=== PATIENT | male | born 1990 | race Caucasian/White ===

== ENCOUNTER 2017-12-06 20:14 | Emergency (ER) | payer OTHER ==
--- NOTE | 2017-12-06 20:37 | NUR ---
CALLED PT IN [place], NO RESPONSE
--- NOTE | 2017-12-06 21:08 | NUR ---
CALLED AGAIN X4; NOT IN LOBBY OR OUTSIDE ER. INFORMED BY SECURITY "PT WALKED OUT LONG TIME AGO"
== END 2017-12-06 21:09 | disposition left against medical advice (07) ==
LOC: ER 20:21
DX: Z53.21 Procedure and treatment not carried out due to patient leaving prior to being seen by health care provider (principal); Z04.6 Encounter for general psychiatric examination, requested by authority

== ENCOUNTER 2020-03-23 23:48 | Emergency (ER) | payer MEDICAID, OTHER ==
[~2020-03-23] VITALS: Ht 180.3 cm; Wt 79.4 kg
[2020-03-23 23:50] VITALS: BP 134/65
[2020-03-24 01:01] LABS: BASOPHILS # (AUTO) 0.1 /CMM (0.0-0.2); BASOPHILS % (AUTO) 0.9 % (0.0-2.0); EOSINOPHILS % (AUTO) 0.5 % (0.0-6.0); HEMATOCRIT 45 % (39-51); LYMPHOCYTES % (AUTO) 22.7 % (20.0-44.0); MEAN CORPUSCULAR HGB CONC 34 g/dl (31.0-36.0); MEAN CORPUSCULAR VOLUME 94 fL (80-96); MONOCYTES # (AUTO) 0.5 /CMM (0.1-1.30); MONOCYTES % (AUTO) 5.6 % (2.0-12.0); NEUTROPHILS # (AUTO) 6.2 /CMM (1.8-8.9); NEUTROPHILS % (AUTO) 70.3 % (43.0-81.0); PLATELET COUNT (AUTO) 289 /CMM (150-450); RED BLOOD CELL COUNT(AUTO) 4.73 MIL/uL (4.5-6.0); WHITE BLOOD COUNT (AUTO) 8.8 K/uL (4.3-11.0)
[2020-03-24 01:23] LABS: CALCIUM, SERUM 8.4 mg/dL (8.5-10.1); CARBON DIOXIDE 28 mmol/L (21-32); CHLORIDE 103 mmol/L (98-107); CREATININE 0.9 mg/dL (0.6-1.3); GLUCOSE 102 mg/dL (74-106); POTASSIUM 3.4 mmol/L (3.5-5.1); SODIUM SERUM 140 mmol/L (136-145); UREA NITROGEN, BLOOD 16 mg/dL (7-18)
[2020-03-24 01:27] LABS: ALANINE AMINOTRANSFERASE 26 U/L (12-78); ALBUMIN 3.9 g/dL (3.4-5.0); ALCOHOL, BLOOD < 3 mg/dL (0-0); ALKALINE PHOSPHATASE 73 U/L (46-116); ASPARTATE AMINOTRANSFERASE 15 U/L (15-37); BILIRUBIN,DIRECT 0.2 mg/dL (0.0-0.2); BILIRUBIN,TOTAL 0.6 mg/dL (0.2-1.0); TOTAL PROTEIN, SERUM 7.7 g/dL (6.4-8.2)
[2020-03-24 01:29] LABS: ACETAMINOPHEN < 10 ug/ml (10-30)
[2020-03-24 01:32] LABS: BILIRUBIN,URINE NEGATIVE (NEGATIVE); BLOOD, URINE SMALL Ery/uL (NEGATIVE); COLOR,URINE YELLOW (YELLOW); LEUKOCYTE ESTERASE ,URINE NEGATIVE (NEGATIVE); NITRITE, URINE NEGATIVE (NEGATIVE); PROTEIN,URINE NEGATIVE (NEGATIVE); UGLUCOSE NEGATIVE (NEGATIVE); UROBILINOGEN,URINE 0.2 EU/dL (0.2)
--- NOTE | 2020-03-24 01:42 | NUR ---
Pt states that he no longer wishes to stay in the er or be transfered to [facility]. Pt denies any si/hi. Pt eloped from ER. Dr Weathers notified.
== END 2020-03-24 02:00 | disposition left against medical advice (07) ==
LOC: ER 23:51
DX: F32.9 Major depressive disorder, single episode, unspecified (principal); R45.851 Suicidal ideations; F25.9 Schizoaffective disorder, unspecified
CPT/HCPCS: 36415; 80048-TC; 80076-TC; 85025-TC; G0480

== ENCOUNTER 2020-07-14 14:12 | Emergency (ER) | payer MEDICAID, OTHER ==
[~2020-07-14] VITALS: Ht 180.3 cm; Wt 83.9 kg
--- NOTE | 2020-07-14 14:23 | NUR ---
pt bib mother, states he is feeling homicidal stating "i want to kill my father." also having si w/ no specific plan. admits to been drinking today. pt is verbally responsive. stable vitals. nad noted. awaiting md ordoñez.
--- NOTE | 2020-07-14 14:34 | NUR ---
dr head at bedside for eval.
--- NOTE | 2020-07-14 14:40 | NUR ---
microbiology laboratory manager at bedside for blood draw.
[2020-07-14 14:48] LABS: BASOPHILS % (AUTO) 0.6 % (0.0-2.0); EOSINOPHILS % (AUTO) 0.8 % (0.0-6.0); HEMATOCRIT 43 % (39-51); HEMOGLOBIN 14.4 g/dL (13.5-17.5); LYMPHOCYTES # (AUTO) 1.5 /CMM (0.8-4.8); LYMPHOCYTES % (AUTO) 26.6 % (20.0-44.0); MEAN CORPUSCULAR HGB CONC 34 g/dl (31.0-36.0); MEAN CORPUSCULAR VOLUME 94 fL (80-96); MONOCYTES # (AUTO) 0.2 /CMM (0.1-1.30); MONOCYTES % (AUTO) 3.1 % (2.0-12.0); NEUTROPHILS # (AUTO) 3.9 /CMM (1.8-8.9); NEUTROPHILS % (AUTO) 68.9 % (43.0-81.0); PLATELET COUNT (AUTO) 321 /CMM (150-450); RED BLOOD CELL COUNT(AUTO) 4.57 MIL/uL (4.5-6.0); WHITE BLOOD COUNT (AUTO) 5.6 K/uL (4.3-11.0)
--- NOTE | 2020-07-14 14:50 | NUR ---
called security for wanding
--- NOTE | 2020-07-14 14:55 | NUR ---
security at bedside for wanding.
[2020-07-14 14:57] LABS: BILIRUBIN,URINE Negative (NEGATIVE); COLOR,URINE LIGHT YELLOW (YELLOW); LEUKOCYTE ESTERASE ,URINE Negative (NEGATIVE); NITRITE, URINE Negative (NEGATIVE); PROTEIN,URINE Negative (NEGATIVE); UGLUCOSE Negative (NEGATIVE); UROBILINOGEN,URINE 0.2 EU/dL (0.2)
[2020-07-14 15:02] LABS: ALANINE AMINOTRANSFERASE 18 U/L (12-78); ALBUMIN 3.6 g/dL (3.4-5.0); ALCOHOL, BLOOD 116 mg/dL (0-0); ALKALINE PHOSPHATASE 63 U/L (46-116); ASPARTATE AMINOTRANSFERASE 15 U/L (15-37); BILIRUBIN,DIRECT 0.1 mg/dL (0.0-0.2); BILIRUBIN,TOTAL 0.6 mg/dL (0.2-1.0); CALCIUM, SERUM 8.8 mg/dL (8.5-10.1); CARBON DIOXIDE 25 mmol/L (21-32); CHLORIDE 105 mmol/L (98-107); CREATININE 0.9 mg/dL (0.6-1.3); GLUCOSE 102 mg/dL (74-106); POTASSIUM 4.1 mmol/L (3.5-5.1); SODIUM SERUM 140 mmol/L (136-145); TOTAL PROTEIN, SERUM 7.2 g/dL (6.4-8.2); UREA NITROGEN, BLOOD 18 mg/dL (7-18)
[2020-07-14 15:03] LABS: BACTERIA,URINE Rare /HPF (None Seen); SQUAMOUS EPITHELIAL CELL,UR 0-2 /HPF (None Seen); WBC,URINE 0-2 /HPF (0-3)
[2020-07-14 15:05] LABS: ACETAMINOPHEN < 10 ug/ml (10-30)
--- NOTE | 2020-07-14 16:24 | NUR ---
covid 19 swab collected and sent to lab
--- NOTE | 2020-07-14 17:28 | NUR ---
COVID 19 rapid Antigen results: NEGATIVE
--- NOTE | 2020-07-14 22:10 | NUR ---
PT GOT ACCEPTED AT [facility]UELLAR # [phone]
--- NOTE | 2020-07-14 22:31 | NUR ---
[facility] ETA 0000
--- NOTE | 2020-07-15 00:10 | NUR ---
REPORT GIVEN TO LETITIA FAN FROM [facility]
--- NOTE | 2020-07-15 00:40 | NUR ---
[facility] DELAYED 45MIN ETA
--- NOTE | 2020-07-15 01:26 | NUR ---
REPORT GIVEN TO [facility] EMT
[2020-07-15 01:32] VITALS: BP 123/74
== END 2020-07-15 01:33 ==
LOC: ER 14:13
DX: F25.0 Schizoaffective disorder, bipolar type (principal); R45.851 Suicidal ideations; Z20.822 Contact with and (suspected) exposure to COVID-19; Z72.89 Other problems related to lifestyle
CPT/HCPCS: 36415; 80048; 80076; 80299; 80307; 80320 ×2; 81001; 85025; 87426; 99285; C9803; G0480

== ENCOUNTER 2020-10-17 15:45 | Emergency (ER) | payer OTHER ==
[~2020-10-17] VITALS: Ht 167.6 cm; Wt 81.6 kg
[2020-10-17] MEDS ORDERED: IV NS 0.9% 1,000 ML BAG IV ONE ×3 (16:00→21:30)
[2020-10-17] MEDS ORDERED: LORAZEPAM INJ 2 MG/ML VIAL IV ONE ×3 (16:00→21:30)
--- NOTE | 2020-10-17 16:00 | NUR ---
"i want to go to [place] [facility]- need medical clearance" Patient a/ox4, breathing even and unlabored, no sob noted, needs attended.
[2020-10-17] MEDS ORDERED: LORAZEPAM INJ 2 MG/ML VIAL ONE ×3 (16:27→21:03)
[2020-10-17 16:41] LABS: BASOPHILS # (AUTO) 0.1 K/uL (0.0-0.2); BASOPHILS % (AUTO) 1.1 % (0.0-2.0); EOSINOPHILS % (AUTO) 0.1 % (0.0-6.0); HEMATOCRIT 46 % (39-51); HEMOGLOBIN 15.5 g/dL (13.5-17.5); LYMPHOCYTES # (AUTO) 1.1 K/uL (0.8-4.8); LYMPHOCYTES % (AUTO) 8.1 % (20.0-44.0); MEAN CORPUSCULAR HGB CONC 34 g/dl (31.0-36.0); MEAN CORPUSCULAR VOLUME 93 fL (80-96); MONOCYTES # (AUTO) 0.5 K/uL (0.1-1.30); MONOCYTES % (AUTO) 3.4 % (2.0-12.0); NEUTROPHILS # (AUTO) 12.1 K/uL (1.8-8.9); NEUTROPHILS % (AUTO) 87.3 % (43.0-81.0); PLATELET COUNT (AUTO) 357 K/uL (150-450); RED BLOOD CELL COUNT(AUTO) 4.96 MIL/uL (4.5-6.0); WHITE BLOOD COUNT (AUTO) 13.8 K/uL (4.3-11.0)
[2020-10-17 16:49] LABS: CARBON DIOXIDE 25 mmol/L (21-32); CHLORIDE 101 mmol/L (98-107); CREATININE 1.1 mg/dL (0.6-1.3); GLUCOSE 128 mg/dL (74-106); POTASSIUM 3.4 mmol/L (3.5-5.1); SODIUM SERUM 139 mmol/L (136-145); UREA NITROGEN, BLOOD 19 mg/dL (7-18)
[2020-10-17 16:56] LABS: ACETAMINOPHEN < 2 ug/ml (10-30); ALANINE AMINOTRANSFERASE 26 U/L (12-78); ALBUMIN 4.3 g/dL (3.4-5.0); ALCOHOL, BLOOD 64 mg/dL (0-0); ALKALINE PHOSPHATASE 65 U/L (46-116); ASPARTATE AMINOTRANSFERASE 16 U/L (15-37); BILIRUBIN,DIRECT 0.1 mg/dL (0.0-0.2); BILIRUBIN,TOTAL 0.4 mg/dL (0.2-1.0); TOTAL PROTEIN, SERUM 8.6 g/dL (6.4-8.2)
--- NOTE | 2020-10-17 17:01 | NUR ---
COVID PENDING, MACHINE IS BROKEN PER CLS MAGDA
[2020-10-17 17:42] LABS: BILIRUBIN,URINE Negative (NEGATIVE); COLOR,URINE YELLOW (YELLOW); LEUKOCYTE ESTERASE ,URINE Negative (NEGATIVE); NITRITE, URINE Negative (NEGATIVE); PROTEIN,URINE Trace mg/dl (NEGATIVE); UGLUCOSE Negative (NEGATIVE); UROBILINOGEN,URINE 0.2 EU/dL (0.2)
[2020-10-17 17:55] LABS: BACTERIA,URINE Rare /HPF (None Seen); SQUAMOUS EPITHELIAL CELL,UR Few /HPF (None Seen); WBC,URINE NONE SEEN /HPF (0-3)
--- NOTE | 2020-10-17 19:01 | NUR ---
PATIENT RESTING, NO DISTRESS. PT STS HE'S SLEEPY AND STILL SLIGHTLY ANXIOUS.
--- NOTE | 2020-10-17 19:26 | NUR ---
facesheet and clinicals faxed to [facility].
--- NOTE | 2020-10-17 20:36 | NUR ---
PT ACCEPTED AT [facility] 2 GIVE REPORT TO: [phone] BROWN
--- NOTE | 2020-10-17 21:01 | NUR ---
PER VEBAL ORDER BY CONCEPCION CRESPO WILL ADMIN 1L NS BOLUS AND ATIVAN 1MG IV X1 NOW
--- NOTE | 2020-10-17 21:58 | NUR ---
REPORT GIVEN TO LETITIA DASILVA FROM [facility]
--- NOTE | 2020-10-17 22:18 | NUR ---
CALLED CALL THE CAR FOR TRANSPORTATION. WILL CALL BACK WITH ETA. RESERVATION #[id number]
--- NOTE | 2020-10-17 23:27 | NUR ---
[facility] ETA [phone]
--- NOTE | 2020-10-18 00:18 | NUR ---
Janusz aguila in ED - 10/18/20 at 0048 by SACHA Patient discharged to home in stable condition. Written and verbal after care instructions given. Patient verbalizes understanding of instruction.
--- NOTE | 2020-10-18 00:25 | NUR ---
Patient states, "i really want to go outside and smoke. I'm going to call my mom to pick me up."
--- NOTE | 2020-10-18 00:28 | NUR ---
IV removed. Catheter intact and site benign. Pressure and 4x4 applied to site. No bleeding noted.
--- NOTE | 2020-10-18 00:34 | NUR ---
Patient denies Suicidal ideation and denies homicidal intent.
--- NOTE | 2020-10-18 00:43 | NUR ---
Patient discharged to home in stable condition. Written and verbal after care instructions given. Patient verbalizes understanding of instruction.
[2020-10-18 00:47] VITALS: BP 127/76
== END 2020-10-18 00:47 | disposition home or self-care (01) ==
LOC: ER 15:50
DX: R45.851 Suicidal ideations (principal); R45.850 Homicidal ideations; F19.10 Other psychoactive substance abuse, uncomplicated; R00.0 Tachycardia, unspecified; F15.10 Other stimulant abuse, uncomplicated; Z91.14 Patient's other noncompliance with medication regimen; F25.0 Schizoaffective disorder, bipolar type; Z20.822 Contact with and (suspected) exposure to COVID-19
CPT/HCPCS: 36415; 80048; 80076; 80143; 80307; 80320; 81001; 85025; 87426; 93005; 96361; 96374; 96376; 99285; C9803; J2060 ×3; J7030 ×3; G0480

== ENCOUNTER → 2020-10-17 | Emergency (ER) | payer OTHER ==
--- NOTE | 2020-10-17 12:11 | NUR ---
Called NO response
--- NOTE | 2020-10-17 12:20 | NUR ---
Called NO response NO one in [place]
--- NOTE | 2020-10-17 12:35 | NUR ---
Caklled No response. Eltarasd
== END | disposition home or self-care (01) ==
LOC: ER 13:02
DX: Z53.21 Procedure and treatment not carried out due to patient leaving prior to being seen by health care provider (principal)

== ENCOUNTER 2020-12-02 23:06 | Emergency (ER) | payer OTHER ==
[~2020-12-02] VITALS: Ht 180.3 cm; Wt 77.1 kg
--- NOTE | 2020-12-03 02:28 | NUR ---
PT CAME TO ER FOR COMPLAIN OF SUICIAL IDEATION. PT WAS PLANNING TO OVERDOSE ON HIS MEDICATION AND IS REQUESTING PLACEMENT TO A VOLUNTARY PSYCH UNIT. PT IS AMBULATORY WITH STABLE GAIT TO BATHROOM. URINE SAMPLE COLLECTED. PT REMAINED ON CLOSE SUPERVISION FOR SI PRECAUTION. VITAL SIGNS STABLE. WILL CONTINUE TO MONITOR.
[2020-12-03 02:48] LABS: MONOCYTES # (AUTO) 0.4 K/uL (0.1-1.30); NEUTROPHILS # (AUTO) 4.4 K/uL (1.8-8.9); WHITE BLOOD COUNT (AUTO) 8.1 K/uL (4.3-11.0)
[2020-12-03 02:53] LABS: BILIRUBIN,URINE NEGATIVE (NEGATIVE); COLOR,URINE YELLOW (YELLOW); LEUKOCYTE ESTERASE ,URINE NEGATIVE (NEGATIVE); NITRITE, URINE NEGATIVE (NEGATIVE); PH,URINE 6.5 (5.0-8.0); PROTEIN,URINE NEGATIVE (NEGATIVE); UGLUCOSE NEGATIVE (NEGATIVE); UROBILINOGEN,URINE 0.2 EU/dL (0.2)
[2020-12-03 03:01] LABS: ALANINE AMINOTRANSFERASE 32 U/L (12-78); ALCOHOL, BLOOD 38 mg/dL (0-0); ALKALINE PHOSPHATASE 72 U/L (46-116); ASPARTATE AMINOTRANSFERASE 24 U/L (15-37); BILIRUBIN,DIRECT 0.1 mg/dL (0.0-0.2); BILIRUBIN,TOTAL 0.3 mg/dL (0.2-1.0); CALCIUM, SERUM 8.9 mg/dL (8.5-10.1); CARBON DIOXIDE 28 mmol/L (21-32); CHLORIDE 100 mmol/L (98-107); CREATININE 0.7 mg/dL (0.6-1.3); GLUCOSE 105 mg/dL (74-106); POTASSIUM 3.6 mmol/L (3.5-5.1); SODIUM SERUM 139 mmol/L (136-145); TOTAL PROTEIN, SERUM 8.3 g/dL (6.4-8.2); UREA NITROGEN, BLOOD 9 mg/dL (7-18)
[2020-12-03 03:02] LABS: ACETAMINOPHEN < 2 ug/ml (10-30)
[2020-12-03 03:20] LABS: BACTERIA,URINE None seen /HPF (None Seen); SQUAMOUS EPITHELIAL CELL,UR Few /HPF (None Seen)
[2020-12-03 05:18] LABS: HEMATOCRIT 39 % (39-51); HEMOGLOBIN 13.6 g/dL (13.5-17.5); LYMPHOCYTES % (AUTO) 37.6 % (20.0-44.0); MEAN CORPUSCULAR HGB CONC 35 g/dl (31.0-36.0); MEAN CORPUSCULAR VOLUME 93 fL (80-96); MONOCYTES % (AUTO) 5.4 % (2.0-12.0); PLATELET COUNT (AUTO) 446 K/uL (150-450); RED BLOOD CELL COUNT(AUTO) 4.26 MIL/uL (4.5-6.0)
[2020-12-03 05:19] LABS: BASOPHILS # (AUTO) 0.1 K/uL (0.0-0.2)
--- NOTE | 2020-12-03 06:06 | NUR ---
CLINICAL AND FACESHEET FAXED TO [facility]TA[facility] FOR VOLUNTARY PSYCH ADMISSION.
--- NOTE | 2020-12-03 10:00 | NUR ---
PATIENT A/OX4, BREATHING EVEN AND UNLABORED, NO SOB NOTED. NEEDS ATTENDED.
--- NOTE | 2020-12-03 10:33 | NUR ---
THE PATIENT SLEEPING. RESPONSIVE TO VERBAL STIMULI. IN ROOM AIR AND DENIES SOB. RESPIRATION REGULAR AND UNLABORED. WILL CONTINUE TO MONITOR THE PATIENT.
--- NOTE | 2020-12-03 11:43 | NUR ---
Accepted at [facility] will go to unit [address] Moyer For report: [phone] ext [phone]
--- NOTE | 2020-12-03 11:45 | NUR ---
[facility]ORT [facility] CALLED ETA [phone]
--- NOTE | 2020-12-03 12:08 | NUR ---
Given report to Devin gipson Mode [place] Carol.
--- NOTE | 2020-12-03 12:33 | NUR ---
THE PATIENT IS TRANSFERED TO [facility] IN STABLE CONDITION VIA ARRANGED TRANSPO.
[2020-12-03 12:34] VITALS: BP 149/79
== END 2020-12-03 12:34 ==
LOC: ER 23:06
DX: F31.9 Bipolar disorder, unspecified (principal); R45.851 Suicidal ideations; Z20.822 Contact with and (suspected) exposure to COVID-19; F20.9 Schizophrenia, unspecified; Z82.49 Family history of ischemic heart disease and other diseases of the circulatory system; R31.29 Other microscopic hematuria; F19.10 Other psychoactive substance abuse, uncomplicated
CPT/HCPCS: 36415; 80048; 80076; 80143; 80307; 80320; 81001; 85025; 87426; 99285; C9803; G0480

== ENCOUNTER 2020-12-20 19:17 | Emergency (ER) | payer OTHER ==
[~2020-12-20] VITALS: Ht 180.3 cm; Wt 79.4 kg
--- NOTE | 2020-12-20 21:36 | NUR ---
BIBS TO ER BED 19. AAOX4. NOT IN RESP DISTRESS. AMBULATORY, CAME IN FOR SUICIDAL IDEATION W/ PLAN TO SHOOT HIMSELF. PT IS SEEKING VOLUNTARY ADMISSION TO [facility]. PT IS GOWN, BELONGINGS PLACED IN LOCKER AND SITTER WITH SIGHT. WAS AT HE BEDSIDE FOR EVAL. ORDERS RECEIVED, NOTED AND CARRIED OUT.
[2020-12-20 21:38] LABS: BILIRUBIN,URINE SMALL (NEGATIVE); COLOR,URINE YELLOW (YELLOW); LEUKOCYTE ESTERASE ,URINE Negative (NEGATIVE); NITRITE, URINE Negative (NEGATIVE); PH,URINE 6.5 (5.0-8.0); PROTEIN,URINE 100 mg/dl (NEGATIVE); UGLUCOSE Negative (NEGATIVE)
[2020-12-20 21:51] LABS: RBC,URINE 21-50 /HPF (0-2); WBC,URINE 0-2 /HPF (0-3)
[2020-12-20 21:52] LABS: BACTERIA,URINE Few /HPF (None Seen)
[2020-12-20 21:54] LABS: FINE GRANULAR CASTS,URINE Few /LPF (None Seen)
[2020-12-20 21:57] LABS: BASOPHILS # (AUTO) 0.1 K/uL (0.0-0.2); BASOPHILS % (AUTO) 0.4 % (0.0-2.0); EOSINOPHILS % (AUTO) 0.2 % (0.0-6.0); HEMATOCRIT 36 % (39-51); HEMOGLOBIN 12.4 g/dL (13.5-17.5); MEAN CORPUSCULAR HGB CONC 34 g/dl (31.0-36.0); MEAN CORPUSCULAR VOLUME 92 fL (80-96); MONOCYTES # (AUTO) 1.3 K/uL (0.1-1.30); MONOCYTES % (AUTO) 8.2 % (2.0-12.0); NEUTROPHILS % (AUTO) 78.2 % (43.0-81.0); PLATELET COUNT (AUTO) 334 K/uL (150-450); RED BLOOD CELL COUNT(AUTO) 3.97 MIL/uL (4.5-6.0); WHITE BLOOD COUNT (AUTO) 15.3 K/uL (4.3-11.0)
[2020-12-20 22:05] LABS: CALCIUM, SERUM 8.2 mg/dL (8.5-10.1); CARBON DIOXIDE 25 mmol/L (21-32); CHLORIDE 98 mmol/L (98-107); GLUCOSE 102 mg/dL (74-106); POTASSIUM 3.5 mmol/L (3.5-5.1); SODIUM SERUM 136 mmol/L (136-145); UREA NITROGEN, BLOOD 24 mg/dL (7-18)
[2020-12-20 22:11] LABS: ACETAMINOPHEN < 10 ug/ml (10-30); ALANINE AMINOTRANSFERASE 25 U/L (12-78); ALBUMIN 3.3 g/dL (3.4-5.0); ALCOHOL, BLOOD < 3 mg/dL (0-0); ALKALINE PHOSPHATASE 72 U/L (46-116); ASPARTATE AMINOTRANSFERASE 39 U/L (15-37); BILIRUBIN,DIRECT 0.4 mg/dL (0.0-0.2); BILIRUBIN,TOTAL 1.9 mg/dL (0.2-1.0); TOTAL PROTEIN, SERUM 7.6 g/dL (6.4-8.2)
--- NOTE | 2020-12-21 01:18 | NUR ---
VERBAL AUTH RECEIVED.
--- NOTE | 2020-12-21 01:18 | NUR ---
DR VELASCO ON PHONE WITH DR. CASTILLO
--- NOTE | 2020-12-21 01:51 | NUR ---
CLINICALS FAXED TO [facility]
--- NOTE | 2020-12-21 02:05 | NUR ---
PT SITTING QUIETLY IN BED WATCHING TV, CONNECTED TO MONITOR.
--- NOTE | 2020-12-21 04:15 | NUR ---
Patient is resting comfortably in bed with eyes closed. Easily aroused. VSS
--- NOTE | 2020-12-21 06:28 | NUR ---
PT WALKING WITH STEADY GAIT TO BATHROOM, NEEDS MET
--- NOTE | 2020-12-21 10:26 | NUR ---
ACCEPTED AT [facility]. ACCEPTING MD: DR ROGERS / DR SALINAS # FOR REPORT [phone] EXT [phone]
--- NOTE | 2020-12-21 10:29 | NUR ---
CALLED TRANSPORT [facility] TO [place] ETA [phone]
[2020-12-21 12:34] VITALS: BP 117/73
--- NOTE | 2020-12-21 12:44 | NUR ---
CALLED [facility] MULTIPLE TIMES FOR REPORT NO ANSWER AND THEY KEEP TRANSFERRING MY CALL TO AUTOMATED ANSWERING MACHINE.
--- NOTE | 2020-12-21 13:08 | NUR ---
REPORT GIVEN TO LETITIA ZAVALETA OF [facility].
--- NOTE | 2020-12-21 13:44 | NUR ---
REPORT GIVEN TO EMS FOR PT TRANSFER TO [facility].
== END 2020-12-21 13:45 ==
LOC: ER 19:17
DX: R45.851 Suicidal ideations (principal); F15.10 Other stimulant abuse, uncomplicated; Z20.822 Contact with and (suspected) exposure to COVID-19; F31.9 Bipolar disorder, unspecified; F20.9 Schizophrenia, unspecified; Z59.0 Homelessness
CPT/HCPCS: 36415; 71045; 80048; 80076; 80143; 80307; 80320; 81001; 85025; 87426; 99285; C9803; G0480

== ENCOUNTER 2021-03-18 19:03 | Emergency (ER) | payer OTHER ==
[~2021-03-18] VITALS: Ht 180.3 cm; Wt 83.9 kg
[2021-03-18 21:00] VITALS: BP 135/68
--- NOTE | 2021-03-18 21:00 | NUR ---
PRESENTED TO THE ER FOR C/O SI PLAN TO SHOOT HIMSELF. PT REQUESTING MEDICAL CLEARANCE FOR VOLUNTARY PSYCH ADMISSION. PT WAS PLACED ON CLOSE SUPERVISION OF A SITTER. SI PRECAUTION IMPLEMENTED , WILL CONT TO MONITOR
[2021-03-18 21:13] LABS: BASOPHILS % (AUTO) 0.2 % (0.0-2.0); EOSINOPHILS % (AUTO) 0.1 % (0.0-6.0); HEMATOCRIT 47 % (39-51); HEMOGLOBIN 15.9 g/dL (13.5-17.5); LYMPHOCYTES # (AUTO) 2.1 K/uL (0.8-4.8); LYMPHOCYTES % (AUTO) 16.8 % (20.0-44.0); MEAN CORPUSCULAR HGB CONC 34 g/dl (31.0-36.0); MEAN CORPUSCULAR VOLUME 90 fL (80-96); MONOCYTES # (AUTO) 0.7 K/uL (0.1-1.30); MONOCYTES % (AUTO) 5.4 % (2.0-12.0); NEUTROPHILS # (AUTO) 9.9 K/uL (1.8-8.9); NEUTROPHILS % (AUTO) 77.5 % (43.0-81.0); PLATELET COUNT (AUTO) 357 K/uL (150-450); RED BLOOD CELL COUNT(AUTO) 5.26 MIL/uL (4.5-6.0); WHITE BLOOD COUNT (AUTO) 12.7 K/uL (4.3-11.0)
[2021-03-18 21:58] LABS: BILIRUBIN,URINE Negative (NEGATIVE); COLOR,URINE YELLOW (YELLOW); LEUKOCYTE ESTERASE ,URINE Negative (NEGATIVE); NITRITE, URINE Negative (NEGATIVE); PROTEIN,URINE Negative (NEGATIVE); UGLUCOSE Negative (NEGATIVE); UROBILINOGEN,URINE 0.2 EU/dL (0.2)
[2021-03-18 22:00] LABS: BACTERIA,URINE Rare /HPF (None Seen); SQUAMOUS EPITHELIAL CELL,UR Few /HPF (None Seen); WBC,URINE NONE SEEN /HPF (0-3)
[2021-03-18 22:06] LABS: CALCIUM, SERUM 8.4 mg/dL (8.5-10.1); CARBON DIOXIDE 23 mmol/L (21-32); CHLORIDE 97 mmol/L (98-107); GLUCOSE 100 mg/dL (74-106); POTASSIUM 3.7 mmol/L (3.5-5.1); SODIUM SERUM 134 mmol/L (136-145); UREA NITROGEN, BLOOD 7 mg/dL (7-18)
[2021-03-18 22:11] LABS: ACETAMINOPHEN < 2 ug/ml (10-30); ALANINE AMINOTRANSFERASE 28 U/L (12-78); ALBUMIN 4.5 g/dL (3.4-5.0); ALCOHOL, BLOOD 101 mg/dL (0-0); ALKALINE PHOSPHATASE 76 U/L (46-116); ASPARTATE AMINOTRANSFERASE 45 U/L (15-37); BILIRUBIN,DIRECT 0.2 mg/dL (0.0-0.2); BILIRUBIN,TOTAL 1.7 mg/dL (0.2-1.0); TOTAL PROTEIN, SERUM 8.7 g/dL (6.4-8.2)
--- NOTE | 2021-03-18 23:21 | NUR ---
FACESHEET AND CLINICALS FAXED TO [facility].
--- NOTE | 2021-03-19 01:53 | NUR ---
PT GOT ACCEPTED AT [facility] BY DR CORMIER. REPORT GIVEN TO ENZO. [facility] ETA: 5 MIN
--- NOTE | 2021-03-19 01:55 | NUR ---
REPORT GIVEN TO ENZO [facility]
--- NOTE | 2021-03-19 02:25 | NUR ---
PT WAS TRANSFERRED TO [facility] IN STABLE CONDITION. ALL BELONGINGS WERE PICKED UP.
== END 2021-03-19 02:25 ==
LOC: ER 19:13
DX: F25.0 Schizoaffective disorder, bipolar type (principal); R45.851 Suicidal ideations; R45.850 Homicidal ideations; Z59.01 Sheltered homelessness; Z91.14 Patient's other noncompliance with medication regimen; Z20.822 Contact with and (suspected) exposure to COVID-19
CPT/HCPCS: 36415; 80048; 80076; 80143; 80307; 80320; 81001; 85025; 87426; 99285; C9803; G0480

== ENCOUNTER 2021-03-29 01:07 | Emergency (ER) | payer OTHER ==
[~2021-03-29] VITALS: Ht 180.3 cm; Wt 83.9 kg
--- NOTE | 2021-03-29 01:45 | NUR ---
REEMA ANDREA [employer] FROM [place] C/O + SI/HI WITH PLAN TO USE GUN ON HIMSELF. PATIENT IS A/O X 4, RR EVEN AND UNLABORED, NO SOB NOTED. PATIENT PLACED ON RESTAURANT HOST AND POX. PATIENT IN HOSPTIAL GOWN. PATIENT BELONGINGS PLACED IN LOCKER. SITTER AT BEDSIDE.
[2021-03-29 01:50] LABS: BASOPHILS % (AUTO) 0.3 % (0.0-2.0); EOSINOPHILS % (AUTO) 0.1 % (0.0-6.0); HEMATOCRIT 42 % (39-51); HEMOGLOBIN 14.2 g/dL (13.5-17.5); LYMPHOCYTES % (AUTO) 15.3 % (20.0-44.0); MEAN CORPUSCULAR HGB CONC 34 g/dl (31.0-36.0); MEAN CORPUSCULAR VOLUME 92 fL (80-96); MONOCYTES # (AUTO) 1.4 K/uL (0.1-1.30); MONOCYTES % (AUTO) 10.5 % (2.0-12.0); NEUTROPHILS # (AUTO) 9.7 K/uL (1.8-8.9); NEUTROPHILS % (AUTO) 73.8 % (43.0-81.0); PLATELET COUNT (AUTO) 338 K/uL (150-450); RED BLOOD CELL COUNT(AUTO) 4.56 MIL/uL (4.5-6.0); WHITE BLOOD COUNT (AUTO) 13.2 K/uL (4.3-11.0)
[2021-03-29 01:56] LABS: CALCIUM, SERUM 8.9 mg/dL (8.5-10.1); CREATININE 1.1 mg/dL (0.6-1.3); POTASSIUM 3.9 mmol/L (3.5-5.1)
[2021-03-29 02:03] LABS: ALANINE AMINOTRANSFERASE 32 U/L (12-78); ALBUMIN 4.3 g/dL (3.4-5.0); ALCOHOL, BLOOD < 3 mg/dL (0-0); ALKALINE PHOSPHATASE 73 U/L (46-116); ASPARTATE AMINOTRANSFERASE 34 U/L (15-37); BILIRUBIN,DIRECT 0.4 mg/dL (0.0-0.2); BILIRUBIN,TOTAL 2.1 mg/dL (0.2-1.0); TOTAL PROTEIN, SERUM 8.2 g/dL (6.4-8.2)
[2021-03-29 02:11] LABS: ACETAMINOPHEN 0 ug/ml (10-30)
[2021-03-29 03:05] LABS: BILIRUBIN,URINE NEGATIVE (NEGATIVE); COLOR,URINE YELLOW (YELLOW); LEUKOCYTE ESTERASE ,URINE NEGATIVE (NEGATIVE); NITRITE, URINE NEGATIVE (NEGATIVE); PH,URINE 6.5 (5.0-8.0); PROTEIN,URINE NEGATIVE (NEGATIVE); UGLUCOSE NEGATIVE (NEGATIVE); UROBILINOGEN,URINE 0.2 EU/dL (0.2)
--- NOTE | 2021-03-29 06:14 | NUR ---
pt provided with food
--- NOTE | 2021-03-29 06:15 | NUR ---
CLINICALS FAXED TO [facility]
--- NOTE | 2021-03-29 06:41 | NUR ---
PT ACCEPTED AT [facility] UNDER THE CARE OF DR. CUELLAR. CALL [phone] FOR REPORT.
--- NOTE | 2021-03-29 06:44 | NUR ---
REPOT GIVEN TO LETITIA DASILVA [facility] AT THE [facility]
--- NOTE | 2021-03-29 06:47 | NUR ---
CALLED [facility] REGARDING TRANSPORTATION TO [facility]. PER [facility], THEY WANT HIM TO BE TRANSFERRED PAST 1100. ETA 1100
--- NOTE | 2021-03-29 07:05 | NUR ---
LETITIA NICOLE AT BEDSIDE FOR PSYCH EVAL.
[2021-03-29 10:00] VITALS: BP 124/79
--- NOTE | 2021-03-29 10:35 | NUR ---
PICKED UP BY [facility] IN STABLE CONDITION
== END 2021-03-29 10:45 ==
LOC: ER 01:12
DX: R45.851 Suicidal ideations (principal); D72.829 Elevated white blood cell count, unspecified; E80.6 Other disorders of bilirubin metabolism; Z20.822 Contact with and (suspected) exposure to COVID-19; Z59.01 Sheltered homelessness; F31.9 Bipolar disorder, unspecified
CPT/HCPCS: 36415; 80048; 80076; 80143; 80307; 80320; 81003; 85025; 87426; 99285; C9803; G0480

== ENCOUNTER 2021-06-10 13:05 | Emergency (ER) | payer OTHER ==
[~2021-06-10] VITALS: Ht 180.3 cm; Wt 74.8 kg
--- NOTE | 2021-06-10 14:00 | NUR ---
THE PATIENT BIBS FOR C/O FEELING SUICIDAL,PLAN IS TO SHOOT HIMSELF,REQUESTING VOLUNTARY ADMISSION TO [facility]. DENIES HI. DENIES HAVING ANY HALLUCINATIONS. IN ROOM AIR AND DENIES SOB. RESPIRATION REGULAR AND UNLABORED. WILL CONTINUE TO MONITOR THE PATIENT.
[2021-06-10 14:27] LABS: BASOPHILS # (AUTO) 0.1 K/uL (0.0-0.2); BASOPHILS % (AUTO) 0.7 % (0.0-2.0); EOSINOPHILS % (AUTO) 0.8 % (0.0-6.0); HEMATOCRIT 44 % (39-51); HEMOGLOBIN 14.8 g/dL (13.5-17.5); LYMPHOCYTES % (AUTO) 28.7 % (20.0-44.0); MEAN CORPUSCULAR HGB CONC 34 g/dl (31.0-36.0); MEAN CORPUSCULAR VOLUME 91 fL (80-96); MONOCYTES # (AUTO) 0.3 K/uL (0.1-1.30); MONOCYTES % (AUTO) 3.8 % (2.0-12.0); NEUTROPHILS # (AUTO) 4.6 K/uL (1.8-8.9); PLATELET COUNT (AUTO) 271 K/uL (150-450); RED BLOOD CELL COUNT(AUTO) 4.83 MIL/uL (4.5-6.0); WHITE BLOOD COUNT (AUTO) 6.9 K/uL (4.3-11.0)
[2021-06-10 14:33] LABS: BILIRUBIN,URINE NEGATIVE (NEGATIVE); COLOR,URINE STRAW (YELLOW); LEUKOCYTE ESTERASE ,URINE NEGATIVE (NEGATIVE); NITRITE, URINE NEGATIVE (NEGATIVE); PROTEIN,URINE NEGATIVE (NEGATIVE); UGLUCOSE NEGATIVE (NEGATIVE); UROBILINOGEN,URINE 0.2 EU/dL (0.2)
[2021-06-10 14:44] LABS: CALCIUM, SERUM 8.6 mg/dL (8.5-10.1); CARBON DIOXIDE 28 mmol/L (21-32); CHLORIDE 98 mmol/L (98-107); CREATININE 1.3 mg/dL (0.6-1.3); GLUCOSE 95 mg/dL (74-106); POTASSIUM 3.6 mmol/L (3.5-5.1); SODIUM SERUM 134 mmol/L (136-145); UREA NITROGEN, BLOOD 10 mg/dL (7-18)
[2021-06-10 14:56] LABS: ALANINE AMINOTRANSFERASE 31 U/L (12-78); ALCOHOL, BLOOD 112 mg/dL (0-0); ALKALINE PHOSPHATASE 66 U/L (46-116); ASPARTATE AMINOTRANSFERASE 18 U/L (15-37); BILIRUBIN,DIRECT 0.3 mg/dL (0.0-0.2); BILIRUBIN,TOTAL 1.4 mg/dL (0.2-1.0); TOTAL PROTEIN, SERUM 7.7 g/dL (6.4-8.2)
[2021-06-10 14:58] LABS: ACETAMINOPHEN < 2 ug/ml (10-30)
--- NOTE | 2021-06-10 15:31 | NUR ---
SS Consult: SS consult for suicidal. Pt. Is a 31-year-old White male. Pt. demonstrates adequate insight to the reason for hospitalization. Per pt., he was brought to hospital by self-due due to having suicidal thoughts. Pt. was oriented x3, alert, and cooperative. During interview, pt. was capable of following directions, made appropriate eye-contact, and appeared well-groomed. Pt.'s speech was at a normal rate and pt.'s mood was elevated. HANNAH explored pt.'s hx of mental health and substance abuse. Pt. reported no hx of mental health, or homicidal ideation. Pt. reported having suicidal thoughts. Per pt., it started today, and he has a plan to shoot himself if he does not get the help he needs. Pt. reported that he drinks a 3 pack every night but does not want help regarding his drink. Pt. denies auditory hallucinations, visual hallucinations, paranoia, or delusions. SW explored pt.'s living situation. Per pt., he resides with his mom in [place]. Pt. stated that he sees a therapist and a psychiatrist [pt. couldn't provide name or number] every month but has not recently. Per pt., he reports having adequate support from his mom [Taylor [phone]]. Pt. expressed that [facility]. HANNAH provided available resources and pt. rejected. Please fax clinicals to [facility] once pt. is medically cleared.
--- NOTE | 2021-06-10 17:33 | NUR ---
FAXED CLINICALS TO [facility]
--- NOTE | 2021-06-10 18:31 | NUR ---
ACCEPTED AT [facility] UNDER DR MEZA NUMBER FOR REPORT [phone] SO TO ARRANGE TRANSPORT
--- NOTE | 2021-06-10 18:35 | NUR ---
[facility] CALLED FOR TRANSPORT ETA IS 2030
--- NOTE | 2021-06-10 18:42 | NUR ---
REPORT GIVEN TO NURSING NILAY SINCLAIR FROM [facility].
--- NOTE | 2021-06-10 20:33 | NUR ---
[facility] AT BEDSIDE FOR TRANSPORTATION.
[2021-06-10 20:34] VITALS: BP 138/70
== END 2021-06-10 20:46 ==
LOC: ER 13:06
DX: R45.851 Suicidal ideations (principal); F31.9 Bipolar disorder, unspecified; F17.200 Nicotine dependence, unspecified, uncomplicated; Z20.822 Contact with and (suspected) exposure to COVID-19; Z59.00 Homelessness unspecified; R03.0 Elevated blood-pressure reading, without diagnosis of hypertension
CPT/HCPCS: 36415; 80048; 80076; 80143; 80307; 80320 ×2; 81003; 85025; 87426; 99285; C9803; G0480

== ENCOUNTER 2021-07-05 22:44 | Emergency (ER) | payer OTHER ==
[~2021-07-05] VITALS: Ht 180.3 cm; Wt 79.4 kg
--- NOTE | 2021-07-06 01:51 | NUR ---
CALLED TO [facility] NOT IN WAITING ROOM
--- NOTE | 2021-07-06 02:10 | NUR ---
BIBS. TO ER BED 18. AAOX4. NOT IN RESP DISTRESS. AMBUALTORY. CAME IN FOR SUICIDAL IDEATION, PLAN TO SHOOT HIMSELF. DOES NOT OWN AND GUN AND UNABLE TO OBATAINED ONE. DENIES HI. PT GOWN, BELONGINGS IN LOCKER AND SITTER WITHIN SIGHT. WAS AT THE BEDSIDE FOR EVAL. ORDERS RECEIVED, NOTED AND CARRIED OUT. URINE COLLECTED, COVID SWAB DONE AND SENT TO LAB.
[2021-07-06 02:29] LABS: BASOPHILS % (AUTO) 0.3 % (0.0-2.0); EOSINOPHILS % (AUTO) 0.3 % (0.0-6.0); HEMATOCRIT 41 % (39-51); HEMOGLOBIN 13.9 g/dL (13.5-17.5); LYMPHOCYTES # (AUTO) 2.5 K/uL (0.8-4.8); LYMPHOCYTES % (AUTO) 20.2 % (20.0-44.0); MEAN CORPUSCULAR HGB CONC 34 g/dl (31.0-36.0); MEAN CORPUSCULAR VOLUME 91 fL (80-96); MONOCYTES # (AUTO) 1.1 K/uL (0.1-1.30); NEUTROPHILS # (AUTO) 8.8 K/uL (1.8-8.9); NEUTROPHILS % (AUTO) 70.2 % (43.0-81.0); PLATELET COUNT (AUTO) 351 K/uL (150-450); RED BLOOD CELL COUNT(AUTO) 4.52 MIL/uL (4.5-6.0); WHITE BLOOD COUNT (AUTO) 12.5 K/uL (4.3-11.0)
--- NOTE | 2021-07-06 02:57 | NUR ---
FOOD AND DRINK PROVIDED TO PT, RESTING COMFORTABLY IN BED
[2021-07-06 03:06] LABS: ALANINE AMINOTRANSFERASE 57 U/L (12-78); ALBUMIN 4.4 g/dL (3.4-5.0); ALCOHOL, BLOOD < 3 mg/dL (0-0); ALKALINE PHOSPHATASE 81 U/L (46-116); ASPARTATE AMINOTRANSFERASE 112 U/L (15-37); BILIRUBIN,TOTAL 2.4 mg/dL (0.2-1.0); CARBON DIOXIDE 25 mmol/L (21-32); CHLORIDE 94 mmol/L (98-107); CREATININE 1.1 mg/dL (0.6-1.3); GLUCOSE 94 mg/dL (74-106); POTASSIUM 4.1 mmol/L (3.5-5.1); SODIUM SERUM 130 mmol/L (136-145); TOTAL PROTEIN, SERUM 8.6 g/dL (6.4-8.2); UREA NITROGEN, BLOOD 15 mg/dL (7-18)
[2021-07-06 03:34] LABS: BILIRUBIN,URINE SMALL (NEGATIVE); COLOR,URINE YELLOW (YELLOW); LEUKOCYTE ESTERASE ,URINE NEGATIVE (NEGATIVE); NITRITE, URINE NEGATIVE (NEGATIVE); PH,URINE 6.5 (5.0-8.0); PROTEIN,URINE TRACE mg/dl (NEGATIVE); UGLUCOSE NEGATIVE (NEGATIVE); UROBILINOGEN,URINE 0.2 EU/dL (0.2)
[2021-07-06 04:14] LABS: BACTERIA,URINE None seen /HPF (None Seen); SQUAMOUS EPITHELIAL CELL,UR Few /HPF (None Seen); WBC,URINE 0-2 /HPF (0-3)
[2021-07-06 04:25] LABS: ACETAMINOPHEN < 2 ug/ml (10-30)
--- NOTE | 2021-07-06 05:07 | NUR ---
faxed face sheet and clinincals to [facility]
--- NOTE | 2021-07-06 05:13 | NUR ---
LUPE AT [facility] HAS REC'D THE FAX. CONFIRMED
[2021-07-06 05:22] LABS: BILIRUBIN,DIRECT 0.4 mg/dL (0.0-0.2)
--- NOTE | 2021-07-06 09:02 | NUR ---
CALLED [facility] FOR UPDATE REGARDING PT ACCEPTANCE AND WAS NOTIFIED THAT CLINICAL PACKET WAS RECEIEVED. NOW AWAITING FEEDBACK FROM RADIOGRAPHY TECHNICIAN.
--- NOTE | 2021-07-06 12:14 | NUR ---
PT GOT [facility]PETED TO [facility] NUMBER FOR REPORT [phone] POLO CRAIG [id number]
--- NOTE | 2021-07-06 12:30 | NUR ---
LUNCH TRAY PROVIDED. TOLERATED WELL
[2021-07-06 16:02] VITALS: BP 146/74
--- NOTE | 2021-07-06 16:10 | NUR ---
REPORT GIVEN TO BRIONNA DONG OF UNIT 2 [facility]
--- NOTE | 2021-07-06 16:15 | NUR ---
PATIENT PICKED UP BY [facility] IN STABLE CONDITION. WOULD BE TRANSFERRED TO [facility]. ALL BELONGINGS GIVEN BACK TO THE PATIENT BEFORE LEAVING FACILITY. ALL DOCUMENT PROVIDED TO BE GIVEN TO [facility].
== END 2021-07-06 16:27 ==
LOC: ER 22:52
DX: R45.851 Suicidal ideations (principal); D72.829 Elevated white blood cell count, unspecified; F31.9 Bipolar disorder, unspecified; F20.9 Schizophrenia, unspecified; E87.1 Hypo-osmolality and hyponatremia; Z20.822 Contact with and (suspected) exposure to COVID-19
CPT/HCPCS: 36415; 80048; 80076; 80143; 80307; 80320; 81001; 85025; 87426; 99285; C9803; G0480

== ENCOUNTER 2021-07-31 14:26 | Emergency (ER) | payer OTHER ==
[~2021-07-31] VITALS: Ht 180.3 cm; Wt 79.4 kg
[2021-07-31 15:20] LABS: BASOPHILS # (AUTO) 0.1 K/uL (0.0-0.2); BASOPHILS % (AUTO) 0.7 % (0.0-2.0); EOSINOPHILS % (AUTO) 0.1 % (0.0-6.0); HEMATOCRIT 43 % (39-51); HEMOGLOBIN 14.8 g/dL (13.5-17.5); LYMPHOCYTES # (AUTO) 1.9 K/uL (0.8-4.8); LYMPHOCYTES % (AUTO) 27.3 % (20.0-44.0); MEAN CORPUSCULAR HGB CONC 34 g/dl (31.0-36.0); MEAN CORPUSCULAR VOLUME 93 fL (80-96); MONOCYTES # (AUTO) 0.4 K/uL (0.1-1.30); MONOCYTES % (AUTO) 6.2 % (2.0-12.0); NEUTROPHILS # (AUTO) 4.7 K/uL (1.8-8.9); NEUTROPHILS % (AUTO) 65.7 % (43.0-81.0); PLATELET COUNT (AUTO) 354 K/uL (150-450); RED BLOOD CELL COUNT(AUTO) 4.63 MIL/uL (4.5-6.0); WHITE BLOOD COUNT (AUTO) 7.1 K/uL (4.3-11.0)
[2021-07-31 15:40] LABS: BILIRUBIN,URINE NEGATIVE (NEGATIVE); COLOR,URINE YELLOW (YELLOW); LEUKOCYTE ESTERASE ,URINE NEGATIVE (NEGATIVE); NITRITE, URINE NEGATIVE (NEGATIVE); PH,URINE 6.5 (5.0-8.0); PROTEIN,URINE NEGATIVE (NEGATIVE); UGLUCOSE NEGATIVE (NEGATIVE); UROBILINOGEN,URINE 0.2 EU/dL (0.2)
--- NOTE | 2021-07-31 15:40 | NUR ---
SS Note: Pt. Is a 31-year-old male who demonstrates adequate insight to the reason for hospitalization. Per pt., he came in for suicidal ideation, with a plan of cutting himself. Pt. was oriented x3, alert, and cooperative. During interview, pt. was capable of following directions and appeared unkempt. Pt.'s speech was at a normal rate and pt.'s mood was elevated. Pt. reported no hx of mental health, substance abuse, denies homicidal ideation. Pt. denies auditory hallucinations, visual hallucinations, paranoia, or delusions. SW explored pt.'s living situation. Per pt., he has been homeless for a few months. Pt. has been to shelters but does not like it. SW offered senior living resources and pt. rejected. Pt. stated that he has been to [facility] before and wants to go back. Plan: Please faxed clinicals to [facility] once pt. is medically cleared.
[2021-07-31 15:49] LABS: ALBUMIN 4.1 g/dL (3.4-5.0); BILIRUBIN,DIRECT 0.2 mg/dL (0.0-0.2); BILIRUBIN,TOTAL 0.9 mg/dL (0.2-1.0); CALCIUM, SERUM 9.4 mg/dL (8.5-10.1); POTASSIUM 3.6 mmol/L (3.5-5.1); TOTAL PROTEIN, SERUM 8.2 g/dL (6.4-8.2)
[2021-07-31 16:22] LABS: BACTERIA,URINE Rare /HPF (None Seen); SQUAMOUS EPITHELIAL CELL,UR Rare /HPF (None Seen); WBC,URINE 0-2 /HPF (0-3)
[2021-07-31 17:20] VITALS: BP 140/82
--- NOTE | 2021-07-31 22:52 | NUR ---
PATIENT ACCEPTED UNDER DR ALLEN AT [facility] REPORT [phone]
--- NOTE | 2021-07-31 23:48 | NUR ---
[facility] ETA 2 HOURS
--- NOTE | 2021-07-31 23:50 | NUR ---
REPORT GIVEN NURSE ANITA SOLIS SOUTHMAYD
--- NOTE | 2021-08-01 00:56 | NUR ---
[facility] 340 AT BEDSIDE FOR PT TRANSPORT TO [facility]. REPORT GIVEN. PT IS IN STABLE CONDITION FOR TRANSPORT. PT IS AMBULATORY ON STEADY GAIT
--- NOTE | 2021-08-01 01:02 | NUR ---
pt left on gurney with 2 emt at bedside on stable condition.
== END 2021-08-01 01:02 ==
LOC: ER 14:28
DX: R45.851 Suicidal ideations (principal); F31.9 Bipolar disorder, unspecified; F17.200 Nicotine dependence, unspecified, uncomplicated; Z59.00 Homelessness unspecified
CPT/HCPCS: 36415; 80048; 80076; 80143; 80307; 80320; 81001; 85025; 87426; 99285; C9803; J7030; G0480

== ENCOUNTER 2021-09-08 15:32 | Emergency (ER) | payer OTHER ==
[~2021-09-08] VITALS: Ht 180.3 cm; Wt 79.4 kg
[2021-09-08] MEDS ORDERED: IBUPROFEN 600 MG TABLET ONE (16:20)
[2021-09-08] MEDS ORDERED: IBUPROFEN 600 MG TABLET PO ONE (16:30)
--- NOTE | 2021-09-08 17:08 | NUR ---
urine collected and sent to the lab
--- NOTE | 2021-09-08 17:08 | NUR ---
covid antigen swab done and sent to the lab
[2021-09-08 17:38] LABS: BILIRUBIN,URINE NEGATIVE (NEGATIVE); COLOR,URINE YELLOW (YELLOW); LEUKOCYTE ESTERASE ,URINE NEGATIVE (NEGATIVE); NITRITE, URINE NEGATIVE (NEGATIVE); PH,URINE 6.5 (5.0-8.0); PROTEIN,URINE NEGATIVE (NEGATIVE); UGLUCOSE NEGATIVE (NEGATIVE); UROBILINOGEN,URINE 0.2 EU/dL (0.2)
[2021-09-08 17:39] LABS: BASOPHILS % (AUTO) 0.4 % (0.0-2.0); EOSINOPHILS % (AUTO) 0.1 % (0.0-6.0); HEMATOCRIT 45 % (39-51); HEMOGLOBIN 15.3 g/dL (13.5-17.5); LYMPHOCYTES # (AUTO) 2.1 K/uL (0.8-4.8); LYMPHOCYTES % (AUTO) 23.4 % (20.0-44.0); MEAN CORPUSCULAR HGB CONC 34 g/dl (31.0-36.0); MEAN CORPUSCULAR VOLUME 91 fL (80-96); MONOCYTES # (AUTO) 0.3 K/uL (0.1-1.30); NEUTROPHILS # (AUTO) 6.7 K/uL (1.8-8.9); NEUTROPHILS % (AUTO) 73.1 % (43.0-81.0); PLATELET COUNT (AUTO) 291 K/uL (150-450); WHITE BLOOD COUNT (AUTO) 9.2 K/uL (4.3-11.0)
[2021-09-08 17:57] LABS: RBC,URINE 0-2 /HPF (0-2); WBC,URINE 0-2 /HPF (0-3)
[2021-09-08 17:58] LABS: BACTERIA,URINE None seen /HPF (None Seen); SQUAMOUS EPITHELIAL CELL,UR None Seen /HPF (None Seen)
[2021-09-08 18:13] LABS: CALCIUM, SERUM 9.1 mg/dL (8.5-10.1); CARBON DIOXIDE 31 mmol/L (21-32); CHLORIDE 102 mmol/L (98-107); GLUCOSE 89 mg/dL (74-106); SODIUM SERUM 138 mmol/L (136-145); UREA NITROGEN, BLOOD 10 mg/dL (7-18)
[2021-09-08 18:18] LABS: ALANINE AMINOTRANSFERASE 20 U/L (12-78); ALBUMIN 3.8 g/dL (3.4-5.0); ALCOHOL, BLOOD 65 mg/dL (0-0); ALKALINE PHOSPHATASE 64 U/L (46-116); ASPARTATE AMINOTRANSFERASE 19 U/L (15-37); BILIRUBIN,DIRECT 0.1 mg/dL (0.0-0.2); BILIRUBIN,TOTAL 0.6 mg/dL (0.2-1.0); TOTAL PROTEIN, SERUM 8.1 g/dL (6.4-8.2)
[2021-09-08 18:19] LABS: ACETAMINOPHEN < 0 ug/ml (10-30)
--- NOTE | 2021-09-08 20:46 | NUR ---
faxed face sheet and clinicals to [facility]
[2021-09-08 23:07] VITALS: BP 141/84
--- NOTE | 2021-09-08 23:10 | NUR ---
PT IS ACCEPTED AT [facility] UNDER THE CARE OF DR. CUELLAR. CALL [phone] FOR REPORT.
--- NOTE | 2021-09-08 23:11 | NUR ---
ETA 20-30 MIN ETA VIA [facility]
--- NOTE | 2021-09-08 23:14 | NUR ---
REPORT GIVEN TO LETITIA DASILVA SUP [facility] AT THE [facility]
--- NOTE | 2021-09-08 23:31 | NUR ---
[facility] 280 AT BEDSIDE FOR PT TRANSPORT. REPORT GIVEN TO EMT. PT IS IN STABLE CONDITION. AMBULATORY ON STEADY GAIT
--- NOTE | 2021-09-08 23:43 | NUR ---
PT LEFT ON GURNEY WITH 3 EMT AT BEDSIDE ON STABEL CONDITION.
== END 2021-09-09 ==
LOC: ER 15:35
DX: R45.851 Suicidal ideations (principal); Z20.822 Contact with and (suspected) exposure to COVID-19; F31.9 Bipolar disorder, unspecified; F25.9 Schizoaffective disorder, unspecified
CPT/HCPCS: 36415; 80048; 80076; 80143; 80307; 80320; 81001; 85025; 87426; 99285; C9803; G0480

== ENCOUNTER 2021-10-14 22:05 | Emergency (ER) | payer OTHER ==
[~2021-10-14] VITALS: Ht 180.3 cm; Wt 79.4 kg
[2021-10-14 23:28] LABS: BASOPHILS % (AUTO) 0.5 % (0.0-2.0); EOSINOPHILS % (AUTO) 2.1 % (0.0-6.0); HEMATOCRIT 38 % (39-51); LYMPHOCYTES # (AUTO) 2.2 K/uL (0.8-4.8); LYMPHOCYTES % (AUTO) 38.7 % (20.0-44.0); MEAN CORPUSCULAR HGB CONC 34 g/dl (31.0-36.0); MEAN CORPUSCULAR VOLUME 91 fL (80-96); MONOCYTES # (AUTO) 0.4 K/uL (0.1-1.30); MONOCYTES % (AUTO) 6.9 % (2.0-12.0); NEUTROPHILS % (AUTO) 51.8 % (43.0-81.0); PLATELET COUNT (AUTO) 354 K/uL (150-450); RED BLOOD CELL COUNT(AUTO) 4.21 MIL/uL (4.5-6.0); WHITE BLOOD COUNT (AUTO) 5.7 K/uL (4.3-11.0)
[2021-10-14 23:55] LABS: CALCIUM, SERUM 8.9 mg/dL (8.5-10.1); CREATININE 0.9 mg/dL (0.6-1.3); POTASSIUM 3.6 mmol/L (3.5-5.1)
[2021-10-15 00:01] LABS: ALBUMIN 3.4 g/dL (3.4-5.0); BILIRUBIN,DIRECT 0.1 mg/dL (0.0-0.2); BILIRUBIN,TOTAL 0.2 mg/dL (0.2-1.0); TOTAL PROTEIN, SERUM 7.7 g/dL (6.4-8.2)
[2021-10-15 01:30] LABS: BILIRUBIN,URINE NEGATIVE (NEGATIVE); COLOR,URINE YELLOW (YELLOW); LEUKOCYTE ESTERASE ,URINE NEGATIVE (NEGATIVE); NITRITE, URINE NEGATIVE (NEGATIVE); PROTEIN,URINE NEGATIVE (NEGATIVE); UGLUCOSE NEGATIVE (NEGATIVE); UROBILINOGEN,URINE 0.2 EU/dL (0.2)
[2021-10-15 01:45] LABS: BACTERIA,URINE Rare /HPF (None Seen); RBC,URINE 0-2 /HPF (0-2); SQUAMOUS EPITHELIAL CELL,UR Rare /HPF (None Seen); WBC,URINE 0-2 /HPF (0-3)
--- NOTE | 2021-10-15 02:18 | NUR ---
FACESHEET AND CLINICALS FAXED TO [facility].
--- NOTE | 2021-10-15 04:38 | NUR ---
PT ACCEPTED TO [facility] BY DR ALLEN. # FOR REPORT [phone]
--- NOTE | 2021-10-15 04:50 | NUR ---
CALLED [facility] FOR BLS TO [facility] 30-45 MIN
--- NOTE | 2021-10-15 05:20 | NUR ---
REPORT GIVEN TO FOZIA DONG [facility]
--- NOTE | 2021-10-15 05:25 | NUR ---
GAVE REPORT TO [facility] FOR TRANSPORT
[2021-10-15 05:58] VITALS: BP 126/66
== END 2021-10-15 05:59 ==
LOC: ER 22:13
DX: R45.851 Suicidal ideations (principal); Z20.822 Contact with and (suspected) exposure to COVID-19; F31.9 Bipolar disorder, unspecified; F17.200 Nicotine dependence, unspecified, uncomplicated
CPT/HCPCS: 36415; 80048; 80076; 80143; 80307; 80320; 81001; 85025; 87426; 99285; C9803; G0480

== ENCOUNTER 2021-11-01 09:27 | Emergency (ER) | payer OTHER ==
[~2021-11-01] VITALS: Ht 175.3 cm; Wt 74.8 kg
--- NOTE | 2021-11-01 09:33 | NUR ---
DR MARTINEZ AT BEDSIDE
--- NOTE | 2021-11-01 09:35 | NUR ---
CAME IN FOR "Feeling Suicidal - I want to shoot myself (Denies access to gun). Off meds. TO ER BED 18, HOOKED TO MONITOR, CHANGED TO HOSP GOWN, WARM BLANKET PROVIDED. PATIENT AAO x 4. NOT IN DISTRESS. AWAITING MD NICHOLS
[2021-11-01 09:59] LABS: BILIRUBIN,URINE NEGATIVE (NEGATIVE); COLOR,URINE YELLOW (YELLOW); LEUKOCYTE ESTERASE ,URINE SMALL (NEGATIVE); NITRITE, URINE NEGATIVE (NEGATIVE); PROTEIN,URINE NEGATIVE (NEGATIVE); UGLUCOSE NEGATIVE (NEGATIVE); UROBILINOGEN,URINE 0.2 EU/dL (0.2)
[2021-11-01 09:59] LABS: BASOPHILS # (AUTO) 0.1 K/uL (0.0-0.2); BASOPHILS % (AUTO) 0.6 % (0.0-2.0); EOSINOPHILS % (AUTO) 0.4 % (0.0-6.0); HEMATOCRIT 42 % (39-51); HEMOGLOBIN 14.1 g/dL (13.5-17.5); LYMPHOCYTES # (AUTO) 2.2 K/uL (0.8-4.8); LYMPHOCYTES % (AUTO) 25.8 % (20.0-44.0); MEAN CORPUSCULAR HGB CONC 34 g/dl (31.0-36.0); MEAN CORPUSCULAR VOLUME 91 fL (80-96); MONOCYTES # (AUTO) 0.4 K/uL (0.1-1.30); MONOCYTES % (AUTO) 4.7 % (2.0-12.0); NEUTROPHILS # (AUTO) 5.7 K/uL (1.8-8.9); NEUTROPHILS % (AUTO) 68.5 % (43.0-81.0); PLATELET COUNT (AUTO) 327 K/uL (150-450); RED BLOOD CELL COUNT(AUTO) 4.57 MIL/uL (4.5-6.0); WHITE BLOOD COUNT (AUTO) 8.4 K/uL (4.3-11.0)
[2021-11-01 10:13] LABS: ALANINE AMINOTRANSFERASE 25 U/L (12-78); ALBUMIN 4.1 g/dL (3.4-5.0); ALCOHOL, BLOOD < 3 mg/dL (0-0); ALKALINE PHOSPHATASE 76 U/L (46-116); ASPARTATE AMINOTRANSFERASE 13 U/L (15-37); BILIRUBIN,DIRECT 0.3 mg/dL (0.0-0.2); BILIRUBIN,TOTAL 1.3 mg/dL (0.2-1.0); CALCIUM, SERUM 9.2 mg/dL (8.5-10.1); CARBON DIOXIDE 30 mmol/L (21-32); CHLORIDE 99 mmol/L (98-107); CREATININE 0.8 mg/dL (0.6-1.3); GLUCOSE 90 mg/dL (74-106); POTASSIUM 3.8 mmol/L (3.5-5.1); SODIUM SERUM 137 mmol/L (136-145); TOTAL PROTEIN, SERUM 8.9 g/dL (6.4-8.2); UREA NITROGEN, BLOOD 6 mg/dL (7-18)
[2021-11-01 10:15] LABS: ACETAMINOPHEN < 0 ug/ml (10-30)
[2021-11-01 10:55] LABS: BACTERIA,URINE Few /HPF (None Seen); SQUAMOUS EPITHELIAL CELL,UR Few /HPF (None Seen); WBC,URINE 21-50 /HPF (0-3)
--- NOTE | 2021-11-01 11:21 | NUR ---
COVID SWAB DONE AND SENT TO LAB
--- NOTE | 2021-11-01 11:47 | NUR ---
CLINICALS FAXED TO [facility].
--- NOTE | 2021-11-01 14:14 | NUR ---
FAXED COVID RESULTS
--- NOTE | 2021-11-01 14:27 | NUR ---
REPORT GIVEN TO NICK DONG OF [facility]
[2021-11-01 14:51] VITALS: BP 128/74
[2021-11-01] MEDS ORDERED: NITROFURANTOIN/MONOHYDRATE MACROCRYSTALS 100 MG CAPSULE ONE (14:59)
[2021-11-01] MEDS ORDERED: NITROFURANTOIN/MONOHYDRATE MACROCRYSTALS 100 MG CAPSULE PO ONE (15:00)
--- NOTE | 2021-11-01 15:03 | NUR ---
PATIENT PICKED UP BY [facility] IN STABLE CONDITION. ALL BELONGINGS GIVEN TO PATIENT.
== END 2021-11-01 15:06 ==
LOC: ER 09:32
DX: R45.851 Suicidal ideations (principal); F15.10 Other stimulant abuse, uncomplicated; Z20.822 Contact with and (suspected) exposure to COVID-19; F31.9 Bipolar disorder, unspecified; Z91.14 Patient's other noncompliance with medication regimen
CPT/HCPCS: 99285; 85025; 80048; 87086; 80076; 81001; 36415; 87426; 80143; 80320; 80307; C9803; G0480

== ENCOUNTER 2022-03-30 18:14 | Emergency (ER) | payer OTHER ==
[~2022-03-30] VITALS: Ht 180.3 cm; Wt 74.8 kg
--- NOTE | 2022-03-30 19:25 | NUR ---
URINE SAMPLE COLLECTED
--- NOTE | 2022-03-30 19:30 | NUR ---
COVID SWAB COLLECTED AND SENT TO LAB
[2022-03-30 19:54] VITALS: BP 144/81
[2022-03-30 19:56] LABS: BILIRUBIN,URINE NEGATIVE (NEGATIVE); COLOR,URINE YELLOW (YELLOW); LEUKOCYTE ESTERASE ,URINE NEGATIVE (NEGATIVE); NITRITE, URINE NEGATIVE (NEGATIVE); PROTEIN,URINE NEGATIVE (NEGATIVE); UGLUCOSE NEGATIVE (NEGATIVE); UROBILINOGEN,URINE 0.2 EU/dL (0.2)
[2022-03-30 19:56] LABS: BASOPHILS % (AUTO) 0.5 % (0.0-2.0); HEMATOCRIT 43 % (39-51); HEMOGLOBIN 14.4 g/dL (13.5-17.5); LYMPHOCYTES # (AUTO) 1.5 K/uL (0.8-4.8); LYMPHOCYTES % (AUTO) 15.7 % (20.0-44.0); MEAN CORPUSCULAR HGB CONC 34 g/dl (31.0-36.0); MEAN CORPUSCULAR VOLUME 92 fL (80-96); MONOCYTES # (AUTO) 0.2 K/uL (0.1-1.30); MONOCYTES % (AUTO) 1.9 % (2.0-12.0); NEUTROPHILS # (AUTO) 7.8 K/uL (1.8-8.9); NEUTROPHILS % (AUTO) 81.9 % (43.0-81.0); PLATELET COUNT (AUTO) 313 K/uL (150-450); RED BLOOD CELL COUNT(AUTO) 4.65 MIL/uL (4.5-6.0); WHITE BLOOD COUNT (AUTO) 9.6 K/uL (4.3-11.0)
[2022-03-30 20:18] LABS: CALCIUM, SERUM 8.4 mg/dL (8.5-10.1); CREATININE 0.9 mg/dL (0.6-1.3); POTASSIUM 3.8 mmol/L (3.5-5.1)
[2022-03-30 20:26] LABS: ALBUMIN 3.9 g/dL (3.4-5.0); BILIRUBIN,DIRECT 0.2 mg/dL (0.0-0.2); BILIRUBIN,TOTAL 0.9 mg/dL (0.2-1.0); TOTAL PROTEIN, SERUM 7.5 g/dL (6.4-8.2)
--- NOTE | 2022-03-30 21:12 | NUR ---
FACESHEET AND CLINICALS FAXED TO [facility].
--- NOTE | 2022-03-30 21:48 | NUR ---
PT ACCEPTED UNDER DR FUNK CALLBACK NUMBER IS [phone]
--- NOTE | 2022-03-30 21:52 | NUR ---
CALLED [facility] FOR TRANSPORT[facility] ETA IS 75-90 MIN
--- NOTE | 2022-03-30 22:48 | NUR ---
REPORT GIVEN TO [facility]
--- NOTE | 2022-03-31 00:24 | NUR ---
GIVEN TO EMS AT BEDSIDE
== END 2022-03-31 01:15 ==
LOC: ER 18:18
DX: R45.851 Suicidal ideations (principal); F15.10 Other stimulant abuse, uncomplicated; Z20.822 Contact with and (suspected) exposure to COVID-19; F31.9 Bipolar disorder, unspecified; R03.0 Elevated blood-pressure reading, without diagnosis of hypertension
CPT/HCPCS: 99285; 85025; 80048; 80076; 81003; 36415; 87426; 80143; 80320; 80307; C9803; G0480

== ENCOUNTER 2022-04-16 23:52 | Emergency (ER) | payer OTHER ==
[~2022-04-16] VITALS: Ht 180.3 cm; Wt 74.8 kg
--- NOTE | 2022-04-17 02:11 | NUR ---
BIBS. TO ER BED 18. AAOX4. NOT IN ANY DISTRESS. AMBUALTORY. CAME IN FOR SUICIDAL IDEATION WITH PLAN TO SHOOT HIMSELF. PT IS SEEKING MEDICAL CLEARANCE FOR VOLUNTARY ADMISSION. DENIES HOMICIDAL IDEATION. PT WAS GOWNED UP, BELONGINGS IN LOCKER AND WANDED. SITTER IS WITHIN SIGHT. URINE AND COVID SWAB COLLECTED. WAS AT THE BEDSIDE FOR EVAL
[2022-04-17 02:51] LABS: BASOPHILS % (AUTO) 0.6 % (0.0-2.0); EOSINOPHILS % (AUTO) 3.5 % (0.0-6.0); HEMATOCRIT 41 % (39-51); HEMOGLOBIN 13.8 g/dL (13.5-17.5); LYMPHOCYTES # (AUTO) 1.5 K/uL (0.8-4.8); LYMPHOCYTES % (AUTO) 28.1 % (20.0-44.0); MEAN CORPUSCULAR HGB CONC 34 g/dl (31.0-36.0); MEAN CORPUSCULAR VOLUME 92 fL (80-96); MONOCYTES # (AUTO) 0.5 K/uL (0.1-1.30); MONOCYTES % (AUTO) 8.6 % (2.0-12.0); NEUTROPHILS # (AUTO) 3.2 K/uL (1.8-8.9); NEUTROPHILS % (AUTO) 59.2 % (43.0-81.0); PLATELET COUNT (AUTO) 296 K/uL (150-450); RED BLOOD CELL COUNT(AUTO) 4.44 MIL/uL (4.5-6.0); WHITE BLOOD COUNT (AUTO) 5.4 K/uL (4.3-11.0)
[2022-04-17 03:19] LABS: ALBUMIN 3.7 g/dL (3.4-5.0); BILIRUBIN,DIRECT 0.2 mg/dL (0.0-0.2); BILIRUBIN,TOTAL 0.8 mg/dL (0.2-1.0); CALCIUM, SERUM 8.6 mg/dL (8.5-10.1); CREATININE 0.9 mg/dL (0.6-1.3); POTASSIUM 3.9 mmol/L (3.5-5.1); TOTAL PROTEIN, SERUM 7.3 g/dL (6.4-8.2)
[2022-04-17 03:43] LABS: BILIRUBIN,URINE NEGATIVE (NEGATIVE); COLOR,URINE YELLOW (YELLOW); LEUKOCYTE ESTERASE ,URINE NEGATIVE (NEGATIVE); NITRITE, URINE NEGATIVE (NEGATIVE); PROTEIN,URINE NEGATIVE (NEGATIVE); UGLUCOSE NEGATIVE (NEGATIVE); UROBILINOGEN,URINE 0.2 EU/dL (0.2)
[2022-04-17 03:45] LABS: WBC,URINE 0-2 /HPF (0-3)
[2022-04-17 03:46] LABS: BACTERIA,URINE Rare /HPF (None Seen); SQUAMOUS EPITHELIAL CELL,UR Few /HPF (None Seen)
--- NOTE | 2022-04-17 04:18 | NUR ---
FACESHEET AND CLINICALS FAXED TO [facility].
--- NOTE | 2022-04-17 05:06 | NUR ---
Janusz aguila in ED - 04/17/22 at 0633 by BRI PT IS ACCEPTED AT [facility] UNDER THE CARE OF Karen CUELLAR. CALL [phone] UNIT TO FOR REPORT
--- NOTE | 2022-04-17 05:06 | NUR ---
PT IS ACCEPTED AT [facility] UNDER THE CARE OF DR. CUELLAR. CALL [phone] UNIT 2 FOR REPORT
--- NOTE | 2022-04-17 06:56 | NUR ---
CALLED FOR REPORT. TO CALL BACK AFTER CHANGE OF SHIFT
--- NOTE | 2022-04-17 07:05 | NUR ---
[facility] CALLED FOR BLS GOING TO [facility] ETA - 60 MIN
[2022-04-17 07:50] VITALS: BP 116/65
--- NOTE | 2022-04-17 08:05 | NUR ---
report given to 2 staff for [facility]
--- NOTE | 2022-04-17 08:06 | NUR ---
report given to DOLORES EMT transport for tonny,all belongings given
== END 2022-04-17 08:07 ==
LOC: ER 23:54
DX: R45.851 Suicidal ideations (principal); F15.10 Other stimulant abuse, uncomplicated; F19.10 Other psychoactive substance abuse, uncomplicated; Z20.822 Contact with and (suspected) exposure to COVID-19; F17.200 Nicotine dependence, unspecified, uncomplicated; F31.9 Bipolar disorder, unspecified
CPT/HCPCS: 99285; 85025; 80048; 80076; 81001; 36415; 87426; 80143; 80320; 80307; C9803; G0480

== ENCOUNTER 2022-07-07 15:25 | Emergency (ER) | payer OTHER ==
[~2022-07-07] VITALS: Ht 180.3 cm; Wt 74.8 kg
[2022-07-07 16:41] LABS: BASOPHILS # (AUTO) 0.1 K/uL (0.0-0.2); BASOPHILS % (AUTO) 0.9 % (0.0-2.0); EOSINOPHILS % (AUTO) 4.6 % (0.0-6.0); HEMATOCRIT 43 % (39-51); HEMOGLOBIN 13.9 g/dL (13.5-17.5); LYMPHOCYTES # (AUTO) 2.1 K/uL (0.8-4.8); LYMPHOCYTES % (AUTO) 27.9 % (20.0-44.0); MEAN CORPUSCULAR HGB CONC 32 g/dl (31.0-36.0); MEAN CORPUSCULAR VOLUME 93 fL (80-96); MONOCYTES # (AUTO) 0.4 K/uL (0.1-1.30); MONOCYTES % (AUTO) 6.1 % (2.0-12.0); NEUTROPHILS # (AUTO) 4.4 K/uL (1.8-8.9); NEUTROPHILS % (AUTO) 60.5 % (43.0-81.0); PLATELET COUNT (AUTO) 341 K/uL (150-450); RED BLOOD CELL COUNT(AUTO) 4.61 MIL/uL (4.5-6.0); WHITE BLOOD COUNT (AUTO) 7.3 K/uL (4.3-11.0)
[2022-07-07 16:43] LABS: BILIRUBIN,URINE NEGATIVE (NEGATIVE); COLOR,URINE YELLOW (YELLOW); LEUKOCYTE ESTERASE ,URINE NEGATIVE (NEGATIVE); NITRITE, URINE NEGATIVE (NEGATIVE); PROTEIN,URINE NEGATIVE (NEGATIVE); UGLUCOSE NEGATIVE (NEGATIVE); UROBILINOGEN,URINE 0.2 EU/dL (0.2)
[2022-07-07 17:01] LABS: BACTERIA,URINE None seen /HPF (None Seen)
[2022-07-07 17:02] LABS: SQUAMOUS EPITHELIAL CELL,UR Few /HPF (None Seen)
[2022-07-07 17:03] LABS: WBC,URINE 0-2 /HPF (0-3)
[2022-07-07 17:35] LABS: BILIRUBIN,DIRECT 0.1 mg/dL (0.0-0.2); BILIRUBIN,TOTAL 0.5 mg/dL (0.2-1.0); CALCIUM, SERUM 9.1 mg/dL (8.5-10.1); GLUCOSE 103 mg/dL (74-106); UREA NITROGEN, BLOOD 15 mg/dL (7-18)
[2022-07-07 17:36] LABS: ACETAMINOPHEN 0 ug/ml (10-30); ALANINE AMINOTRANSFERASE 70 U/L (12-78); ALBUMIN 3.8 g/dL (3.4-5.0); ALCOHOL, BLOOD < 3 mg/dL (0-0); ALKALINE PHOSPHATASE 76 U/L (46-116); ASPARTATE AMINOTRANSFERASE 40 U/L (15-37); TOTAL PROTEIN, SERUM 7.3 g/dL (6.4-8.2)
[2022-07-07 17:41] LABS: CARBON DIOXIDE 27 mmol/L (21-32); CHLORIDE 102 mmol/L (98-107); POTASSIUM 4.1 mmol/L (3.5-5.1); SODIUM SERUM 138 mmol/L (136-145)
--- NOTE | 2022-07-07 18:55 | NUR ---
covid swab collected and sent to lab.
--- NOTE | 2022-07-07 19:42 | NUR ---
FACESHEET AND CLINICALS FAXED TO [facility].
--- NOTE | 2022-07-08 09:30 | NUR ---
FAXED CLINICALS TO [facility].
--- NOTE | 2022-07-08 13:17 | NUR ---
PT PICKED UP FOR TRANSFER TO [facility]
[2022-07-08 13:23] VITALS: BP 122/86
== END 2022-07-08 13:30 ==
LOC: ER 15:29
DX: R45.851 Suicidal ideations (principal); F20.9 Schizophrenia, unspecified; F32.A Depression, unspecified; F17.200 Nicotine dependence, unspecified, uncomplicated; Z20.822 Contact with and (suspected) exposure to COVID-19; Z60.2 Problems related to living alone
CPT/HCPCS: 99285; 85025; 80048; 80076; 81001; 36415; 87426; 80143; 80320; 80307; C9803; G0480

== ENCOUNTER 2022-07-15 02:21 | Emergency (ER) | payer OTHER ==
[~2022-07-15] VITALS: Ht 180.3 cm; Wt 74.8 kg
--- NOTE | 2022-07-15 03:09 | NUR ---
BIBSELF FROM STREET C/O MARTINEZ PLAN TO SHOOT HIMSELF WITH NO GUN. REQUESTING [facility] ADMISSION. -HI. PT A/OX4. TOLERATING R/A WELL WITH NO RESP DISTRESS. AMB WITH STEADY GAIT. PIT IN GOWN, BELONGINGS COLLECTED, WANDED BY SECURITY. SAFETY MEASURES IN PLACE.
--- NOTE | 2022-07-15 03:20 | NUR ---
CLIENT RELATION SPECIALIST AT PT'S BEDSIDE
[2022-07-15 03:40] LABS: BASOPHILS % (AUTO) 0.3 % (0.0-2.0); EOSINOPHILS % (AUTO) 0.1 % (0.0-6.0); HEMATOCRIT 40 % (39-51); HEMOGLOBIN 13.1 g/dL (13.5-17.5); LYMPHOCYTES # (AUTO) 1.7 K/uL (0.8-4.8); LYMPHOCYTES % (AUTO) 9.6 % (20.0-44.0); MEAN CORPUSCULAR HGB CONC 33 g/dl (31.0-36.0); MEAN CORPUSCULAR VOLUME 92 fL (80-96); MONOCYTES # (AUTO) 1.5 K/uL (0.1-1.30); MONOCYTES % (AUTO) 8.9 % (2.0-12.0); NEUTROPHILS # (AUTO) 14.1 K/uL (1.8-8.9); NEUTROPHILS % (AUTO) 81.1 % (43.0-81.0); PLATELET COUNT (AUTO) 312 K/uL (150-450); RED BLOOD CELL COUNT(AUTO) 4.29 MIL/uL (4.5-6.0); WHITE BLOOD COUNT (AUTO) 17.3 K/uL (4.3-11.0)
[2022-07-15 03:51] LABS: BILIRUBIN,URINE NEGATIVE (NEGATIVE); COLOR,URINE YELLOW (YELLOW); LEUKOCYTE ESTERASE ,URINE NEGATIVE (NEGATIVE); NITRITE, URINE NEGATIVE (NEGATIVE); PROTEIN,URINE TRACE mg/dl (NEGATIVE); UGLUCOSE NEGATIVE (NEGATIVE); UROBILINOGEN,URINE 0.2 EU/dL (0.2)
[2022-07-15 03:52] LABS: WBC,URINE 0-2 /HPF (0-3)
[2022-07-15 03:53] LABS: BACTERIA,URINE Rare /HPF (None Seen); SQUAMOUS EPITHELIAL CELL,UR Moderate /HPF (None Seen)
[2022-07-15 04:08] LABS: CARBON DIOXIDE 23 mmol/L (21-32); CHLORIDE 93 mmol/L (98-107); POTASSIUM 4.2 mmol/L (3.5-5.1); SODIUM SERUM 133 mmol/L (136-145)
[2022-07-15 04:09] LABS: CREATININE 0.9 mg/dL (0.6-1.3); GLUCOSE 71 mg/dL (74-106); UREA NITROGEN, BLOOD 20 mg/dL (7-18)
[2022-07-15 04:17] LABS: ALANINE AMINOTRANSFERASE 38 U/L (12-78); ALKALINE PHOSPHATASE 73 U/L (46-116); ASPARTATE AMINOTRANSFERASE 38 U/L (15-37); BILIRUBIN,DIRECT 0.4 mg/dL (0.0-0.2); BILIRUBIN,TOTAL 2.6 mg/dL (0.2-1.0)
[2022-07-15 04:18] LABS: ACETAMINOPHEN 0 ug/ml (10-30); ALBUMIN 4.3 g/dL (3.4-5.0); ALCOHOL, BLOOD < 3 mg/dL (0-0); TOTAL PROTEIN, SERUM 8.4 g/dL (6.4-8.2)
--- NOTE | 2022-07-15 05:56 | NUR ---
CLINICALS FAXED TO [facility]
--- NOTE | 2022-07-15 06:29 | NUR ---
PATIENT ACCEPTED AT [facility] UNDER THE CARE OF DR. CUELLAR. FRANCISCO MARCANO RN SUP FOR REPORT
--- NOTE | 2022-07-15 06:41 | NUR ---
report given to brad pike
[2022-07-15 07:18] VITALS: BP 148/76
== END 2022-07-15 07:19 ==
LOC: ER 02:24
DX: R45.851 Suicidal ideations (principal); F20.9 Schizophrenia, unspecified; F31.9 Bipolar disorder, unspecified; F17.200 Nicotine dependence, unspecified, uncomplicated; Z20.822 Contact with and (suspected) exposure to COVID-19; Z60.2 Problems related to living alone
CPT/HCPCS: 99285; 85025; 80048; 80076; 81001; 36415; 87426; 80143; 80320; 80307; C9803; G0480

== ENCOUNTER 2022-09-19 08:13 | Emergency (ER) | payer OTHER ==
[~2022-09-19] VITALS: Ht 180.3 cm; Wt 81.6 kg
[2022-09-19 08:45] VITALS: BP 136/69
--- NOTE | 2022-09-19 08:55 | NUR ---
covid swab collected and sent to lab
--- NOTE | 2022-09-19 09:04 | NUR ---
security at bedside for wanding and belongings isolation
--- NOTE | 2022-09-19 09:05 | NUR ---
phlebotomy at side
--- NOTE | 2022-09-19 09:06 | NUR ---
covid swab collected and sent to lab
--- NOTE | 2022-09-19 09:14 | NUR ---
urine sample collected and sent to lab
[2022-09-19 09:17] LABS: BASOPHILS # (AUTO) 0.1 K/uL (0.0-0.2); BASOPHILS % (AUTO) 0.4 % (0.0-2.0); HEMATOCRIT 39 % (39-51); LYMPHOCYTES # (AUTO) 1.5 K/uL (0.8-4.8); LYMPHOCYTES % (AUTO) 11.6 % (20.0-44.0); MEAN CORPUSCULAR HGB CONC 33 g/dl (31.0-36.0); MEAN CORPUSCULAR VOLUME 90 fL (80-96); MONOCYTES # (AUTO) 1.1 K/uL (0.1-1.30); MONOCYTES % (AUTO) 8.4 % (2.0-12.0); NEUTROPHILS # (AUTO) 10.5 K/uL (1.8-8.9); NEUTROPHILS % (AUTO) 79.6 % (43.0-81.0); PLATELET COUNT (AUTO) 343 K/uL (150-450); RED BLOOD CELL COUNT(AUTO) 4.34 MIL/uL (4.5-6.0); WHITE BLOOD COUNT (AUTO) 13.2 K/uL (4.3-11.0)
[2022-09-19 09:28] LABS: CARBON DIOXIDE 18 mmol/L (21-32); CHLORIDE 95 mmol/L (98-107); GLUCOSE 75 mg/dL (74-106); SODIUM SERUM 131 mmol/L (136-145); UREA NITROGEN, BLOOD 15 mg/dL (7-18)
[2022-09-19 09:32] LABS: BILIRUBIN,URINE 2+ (NEGATIVE); COLOR,URINE YELLOW (YELLOW); LEUKOCYTE ESTERASE ,URINE NEGATIVE (NEGATIVE); NITRITE, URINE NEGATIVE (NEGATIVE); PH,URINE 5.5 (5.0-8.0); PROTEIN,URINE TRACE mg/dl (NEGATIVE); UGLUCOSE NEGATIVE (NEGATIVE); UROBILINOGEN,URINE 0.2 EU/dL (0.2)
[2022-09-19 09:36] LABS: ALANINE AMINOTRANSFERASE 53 U/L (12-78); ALKALINE PHOSPHATASE 75 U/L (46-116); ASPARTATE AMINOTRANSFERASE 72 U/L (15-37); BILIRUBIN,DIRECT 0.4 mg/dL (0.0-0.2); BILIRUBIN,TOTAL 2.2 mg/dL (0.2-1.0); TOTAL PROTEIN, SERUM 8.5 g/dL (6.4-8.2)
[2022-09-19 09:38] LABS: ALCOHOL, BLOOD < 3 mg/dL (0-10)
[2022-09-19 09:43] LABS: BACTERIA,URINE None seen /HPF (None Seen); WBC,URINE 0-2 /HPF (0-3)
[2022-09-19 09:44] LABS: SQUAMOUS EPITHELIAL CELL,UR Rare /HPF (None Seen)
--- NOTE | 2022-09-19 10:29 | NUR ---
FAXED CLINICALS TO [facility].
--- NOTE | 2022-09-19 16:09 | NUR ---
report given to nursing sup jef. [facility] transport picked up patient in stable condition.
== END 2022-09-19 16:30 ==
LOC: ER 08:15
DX: R45.851 Suicidal ideations (principal); F20.9 Schizophrenia, unspecified; F31.9 Bipolar disorder, unspecified; F17.200 Nicotine dependence, unspecified, uncomplicated; Z60.2 Problems related to living alone; Z20.822 Contact with and (suspected) exposure to COVID-19
CPT/HCPCS: 99285; 85025; 80048; 80076; 81001; 36415; 87426; 80143; 80320; 80307; C9803; G0480

== ENCOUNTER 2023-04-22 15:32 | Emergency (ER) | payer OTHER ==
[~2023-04-22] VITALS: Ht 180.3 cm; Wt 79.4 kg
[2023-04-22 16:22] LABS: BASOPHILS # (AUTO) 0.1 K/uL (0.0-0.2); EOSINOPHILS # (AUTO) 0.4 K/uL (0.0-0.7); EOSINOPHILS % (AUTO) 5.8 % (0.0-6.0); HEMATOCRIT 45 % (39-51); HEMOGLOBIN 15.2 g/dL (13.5-17.5); LYMPHOCYTES # (AUTO) 2.8 K/uL (0.8-4.8); LYMPHOCYTES % (AUTO) 39.4 % (20.0-44.0); MEAN CORPUSCULAR HEMOGLOBIN 30 PG (26.0-33.0); MEAN CORPUSCULAR HGB CONC 34 g/dl (31.0-36.0); MEAN CORPUSCULAR VOLUME 90 fL (80-96); MONOCYTES # (AUTO) 0.4 K/uL (0.1-1.30); MONOCYTES % (AUTO) 6.4 % (2.0-12.0); NEUTROPHILS # (AUTO) 3.3 K/uL (1.8-8.9); NEUTROPHILS % (AUTO) 47.4 % (43.0-81.0); PLATELET COUNT (AUTO) 416 K/uL (150-450); RED BLOOD CELL COUNT(AUTO) 5.05 MIL/uL (4.5-6.0); RED CELL DISTRIBUTION WIDTH 14.8 % (11.5-15.0)
[2023-04-22 17:08] LABS: ALANINE AMINOTRANSFERASE 92 U/L (12-78); ALBUMIN 3.9 g/dL (3.4-5.0); ALCOHOL, BLOOD 3 mg/dL (0-10); ALKALINE PHOSPHATASE 105 U/L (46-116); ASPARTATE AMINOTRANSFERASE 39 U/L (15-37); BILIRUBIN,DIRECT 0.1 mg/dL (0.0-0.2); BILIRUBIN,TOTAL 0.2 mg/dL (0.2-1.0); CALCIUM, SERUM 9.7 mg/dL (8.5-10.1); CARBON DIOXIDE 27 mmol/L (21-32); CHLORIDE 98 mmol/L (98-107); CREATININE 0.9 mg/dL (0.6-1.3); GLUCOSE 118 mg/dL (74-106); POTASSIUM 3.6 mmol/L (3.5-5.1); SALICYLATE 2.4 mg/dL (2.8-20.0); SODIUM SERUM 135 mmol/L (136-145); TOTAL PROTEIN, SERUM 8.4 g/dL (6.4-8.2); UREA NITROGEN, BLOOD 18 mg/dL (7-18)
[2023-04-22 17:09] LABS: ACETAMINOPHEN <10 ug/ml (10-30)
[2023-04-22 19:44] LABS: APPEARANCE,URINE CLEAR (CLEAR); BILIRUBIN,URINE NEGATIVE (NEGATIVE); BLOOD, URINE NEGATIVE Ery/uL (NEGATIVE); COLOR,URINE YELLOW (YELLOW); KETONES,URINE NEGATIVE (NEGATIVE); LEUKOCYTE ESTERASE ,URINE NEGATIVE (NEGATIVE); NITRITE, URINE NEGATIVE (NEGATIVE); PROTEIN,URINE NEGATIVE (NEGATIVE); UGLUCOSE NEGATIVE (NEGATIVE); UROBILINOGEN,URINE 0.2 EU/dL (0.2)
[2023-04-22 20:05] LABS: BARBITURATE, URINE NEGATIVE (NEGATIVE); BENZODIAZEPINE, URINE NEGATIVE (NEGATIVE); CANNABINOID, URINE NEGATIVE (NEGATIVE); COCCAINE, URINE NEGATIVE (NEGATIVE); OPIATE, URINE NEGATIVE (NEGATIVE); PHENCYCLIDINE SCREEN,URINE NEGATIVE (NEGATIVE)
[2023-04-22 20:06] LABS: AMPHETAMINE, URINE POSITIVE (NEGATIVE)
[2023-04-23 04:05] VITALS: BP 113/81; TEMP 98; O2SAT 98
== END 2023-04-23 04:06 ==
LOC: ER 15:39
DX: R45.851 Suicidal ideations (principal); R45.850 Homicidal ideations; F20.9 Schizophrenia, unspecified; F31.9 Bipolar disorder, unspecified; F17.200 Nicotine dependence, unspecified, uncomplicated; Z60.2 Problems related to living alone; Z20.822 Contact with and (suspected) exposure to COVID-19
CPT/HCPCS: 36415; 80048-TC; 80076-TC; 85025-TC; G0480

== ENCOUNTER 2023-05-22 10:46 | Emergency (ER) | payer OTHER ==
[~2023-05-22] VITALS: Ht 180.3 cm; Wt 70.8 kg
[2023-05-22 11:09] VITALS: TEMP 98.2
[2023-05-22 11:30] LABS: APPEARANCE,URINE CLEAR (CLEAR); BILIRUBIN,URINE 2+ (NEGATIVE); BLOOD, URINE 3+ Ery/uL (NEGATIVE); COLOR,URINE DARK YELLOW (YELLOW); KETONES,URINE 3+ mg/dL (NEGATIVE); LEUKOCYTE ESTERASE ,URINE NEGATIVE (NEGATIVE); NITRITE, URINE NEGATIVE (NEGATIVE); PROTEIN,URINE 1+ mg/dl (NEGATIVE); UGLUCOSE NEGATIVE (NEGATIVE); UROBILINOGEN,URINE 0.2 EU/dL (0.2)
[2023-05-22 11:36] LABS: ADD URINE CULTURE NO; BACTERIA,URINE Rare /HPF (None Seen); RBC,URINE 21-50 /HPF (0-2); SQUAMOUS EPITHELIAL CELL,UR Moderate /HPF (None Seen)
[2023-05-22 11:39] LABS: BARBITURATE, URINE NEGATIVE (NEGATIVE); BENZODIAZEPINE, URINE NEGATIVE (NEGATIVE); CANNABINOID, URINE NEGATIVE (NEGATIVE); COCCAINE, URINE NEGATIVE (NEGATIVE); OPIATE, URINE NEGATIVE (NEGATIVE); PHENCYCLIDINE SCREEN,URINE NEGATIVE (NEGATIVE)
[2023-05-22 11:40] LABS: AMPHETAMINE, URINE POSITIVE (NEGATIVE)
[2023-05-22 11:45] LABS: BASOPHILS % (AUTO) 0.3 % (0.0-2.0); EOSINOPHILS % (AUTO) 0.1 % (0.0-6.0); HEMATOCRIT 39 % (39-51); HEMOGLOBIN 13.3 g/dL (13.5-17.5); LYMPHOCYTES % (AUTO) 12.4 % (20.0-44.0); MEAN CORPUSCULAR HEMOGLOBIN 30 PG (26.0-33.0); MEAN CORPUSCULAR HGB CONC 34 g/dl (31.0-36.0); MEAN CORPUSCULAR VOLUME 87 fL (80-96); MONOCYTES # (AUTO) 1.4 K/uL (0.1-1.30); MONOCYTES % (AUTO) 8.5 % (2.0-12.0); NEUTROPHILS # (AUTO) 12.6 K/uL (1.8-8.9); NEUTROPHILS % (AUTO) 78.7 % (43.0-81.0); PLATELET COUNT (AUTO) 329 K/uL (150-450); RED BLOOD CELL COUNT(AUTO) 4.48 MIL/uL (4.5-6.0); RED CELL DISTRIBUTION WIDTH 14.5 % (11.5-15.0); WHITE BLOOD COUNT (AUTO) 16.1 K/uL (4.3-11.0)
[2023-05-22 11:59] LABS: ALANINE AMINOTRANSFERASE 50 U/L (12-78); ALBUMIN 3.8 g/dL (3.4-5.0); ALCOHOL, BLOOD < 3 mg/dL (0-10); ALKALINE PHOSPHATASE 78 U/L (46-116); ASPARTATE AMINOTRANSFERASE 54 U/L (15-37); BILIRUBIN,DIRECT 0.4 mg/dL (0.0-0.2); BILIRUBIN,TOTAL 2.4 mg/dL (0.2-1.0); CALCIUM, SERUM 8.5 mg/dL (8.5-10.1); CARBON DIOXIDE 21 mmol/L (21-32); CHLORIDE 100 mmol/L (98-107); CREATININE 0.9 mg/dL (0.6-1.3); GLUCOSE 126 mg/dL (74-106); POTASSIUM 3.6 mmol/L (3.5-5.1); SODIUM SERUM 136 mmol/L (136-145); TOTAL PROTEIN, SERUM 7.4 g/dL (6.4-8.2); UREA NITROGEN, BLOOD 26 mg/dL (7-18)
[2023-05-22 12:04] LABS: ACETAMINOPHEN <10 ug/ml (10-30); SALICYLATE < 2.3 mg/dL (2.8-20.0)
[2023-05-22] MEDS ORDERED: OLANZAPINE ZYDIS 5 MG TAB.RAPDIS ONE (14:42)
[2023-05-22] MEDS: OLANZAPINE ZYDIS 5 MG TAB.RAPDIS PO ONE (14:44)
[2023-05-23 03:21] VITALS: BP 132/93; O2SAT 98
== END 2023-05-23 03:22 ==
LOC: ER 11:01
DX: R45.851 Suicidal ideations (principal); F15.10 Other stimulant abuse, uncomplicated; F20.9 Schizophrenia, unspecified; F31.9 Bipolar disorder, unspecified; F17.200 Nicotine dependence, unspecified, uncomplicated; Z60.2 Problems related to living alone; Z20.822 Contact with and (suspected) exposure to COVID-19
CPT/HCPCS: 36415; 80048-TC; 80076-TC; 81001; 85025-TC; G0480

== ENCOUNTER 2023-07-01 17:04 | Emergency (ER) | payer OTHER | END 2023-07-01 17:37 | disposition home or self-care (01) | LOC: ER 17:04 | DX: Z00.00 Encounter for general adult medical examination without abnormal findings (principal); Z53.21 Procedure and treatment not carried out due to patient leaving prior to being seen by health care provider ==

== ENCOUNTER 2023-07-07 18:45 | Emergency (ER) | payer OTHER ==
[~2023-07-07] VITALS: Ht 180.3 cm; Wt 99.8 kg
[2023-07-07 20:20] LABS: BASOPHILS % (AUTO) 0.4 % (0.0-2.0); EOSINOPHILS # (AUTO) 0.1 K/uL (0.0-0.7); EOSINOPHILS % (AUTO) 1.5 % (0.0-6.0); HEMATOCRIT 46 % (39-51); HEMOGLOBIN 15.6 g/dL (13.5-17.5); LYMPHOCYTES # (AUTO) 2.5 K/uL (0.8-4.8); MEAN CORPUSCULAR HEMOGLOBIN 30 PG (26.0-33.0); MEAN CORPUSCULAR HGB CONC 34 g/dl (31.0-36.0); MEAN CORPUSCULAR VOLUME 88 fL (80-96); MONOCYTES # (AUTO) 0.5 K/uL (0.1-1.30); NEUTROPHILS # (AUTO) 6.2 K/uL (1.8-8.9); NEUTROPHILS % (AUTO) 66.1 % (43.0-81.0); PLATELET COUNT (AUTO) 400 K/uL (150-450); RED BLOOD CELL COUNT(AUTO) 5.19 MIL/uL (4.5-6.0); RED CELL DISTRIBUTION WIDTH 14.1 % (11.5-15.0); WHITE BLOOD COUNT (AUTO) 9.4 K/uL (4.3-11.0)
[2023-07-07 20:23] LABS: APPEARANCE,URINE CLEAR (CLEAR); BILIRUBIN,URINE NEGATIVE (NEGATIVE); BLOOD, URINE 2+ Ery/uL (NEGATIVE); COLOR,URINE YELLOW (YELLOW); KETONES,URINE NEGATIVE (NEGATIVE); LEUKOCYTE ESTERASE ,URINE NEGATIVE (NEGATIVE); NITRITE, URINE NEGATIVE (NEGATIVE); PH,URINE 6.5 (5.0-8.0); PROTEIN,URINE NEGATIVE (NEGATIVE); UGLUCOSE NEGATIVE (NEGATIVE); UROBILINOGEN,URINE 0.2 EU/dL (0.2)
[2023-07-07 20:28] LABS: CALCIUM, SERUM 9.2 mg/dL (8.5-10.1); CARBON DIOXIDE 27 mmol/L (21-32); CHLORIDE 102 mmol/L (98-107); GLUCOSE 146 mg/dL (74-106); POTASSIUM 3.8 mmol/L (3.5-5.1); SODIUM SERUM 137 mmol/L (136-145); UREA NITROGEN, BLOOD 14 mg/dL (7-18)
[2023-07-07 20:33] LABS: AMPHETAMINE, URINE NEGATIVE (NEGATIVE); BARBITURATE, URINE NEGATIVE (NEGATIVE); BENZODIAZEPINE, URINE NEGATIVE (NEGATIVE); CANNABINOID, URINE NEGATIVE (NEGATIVE); COCCAINE, URINE NEGATIVE (NEGATIVE); OPIATE, URINE NEGATIVE (NEGATIVE); PHENCYCLIDINE SCREEN,URINE NEGATIVE (NEGATIVE)
[2023-07-07 20:33] LABS: ALANINE AMINOTRANSFERASE 50 U/L (12-78); ALBUMIN 3.6 g/dL (3.4-5.0); ALCOHOL, BLOOD < 3 mg/dL (0-10); ALKALINE PHOSPHATASE 106 U/L (46-116); ASPARTATE AMINOTRANSFERASE 18 U/L (15-37); BILIRUBIN,DIRECT 0.1 mg/dL (0.0-0.2); BILIRUBIN,TOTAL 0.6 mg/dL (0.2-1.0); TOTAL PROTEIN, SERUM 7.8 g/dL (6.4-8.2)
[2023-07-07 20:34] LABS: SALICYLATE 1.3 mg/dL (2.8-20.0)
[2023-07-07 20:35] LABS: ACETAMINOPHEN 0 ug/ml (10-30)
[2023-07-07 20:46] LABS: ADD URINE CULTURE NO; BACTERIA,URINE Few /HPF (None Seen); SQUAMOUS EPITHELIAL CELL,UR Few /HPF (None Seen); WBC,URINE 0-2 /HPF (0-3)
[2023-07-08 00:32] VITALS: BP 141/80; TEMP 98.6; O2SAT 99
== END 2023-07-08 00:32 ==
LOC: ER 18:49
DX: R45.851 Suicidal ideations (principal); F31.9 Bipolar disorder, unspecified; F20.9 Schizophrenia, unspecified; F17.200 Nicotine dependence, unspecified, uncomplicated; Z20.822 Contact with and (suspected) exposure to COVID-19; Z60.2 Problems related to living alone
CPT/HCPCS: 36415; 80048-TC; 80076-TC; 81001; 85025-TC; G0480